=== PATIENT | male | born 1965 | race Caucasian/White ===

== ENCOUNTER 2018-02-15 18:06 | Inpatient (IN) ==
[2018-02-16] MEDS ORDERED: Insulin NovoLOG Aspart Correctional Sugar Inj SQ ONE (22:13)
[2018-02-16] MEDS ORDERED: Sodium Chlor 0.9% Inj 250 ML ONE (22:59)
[2018-02-17] MEDS ORDERED: Dextrose 50% in Water 50 ML Vial IV.PUSH PRN (00:01)
[2018-02-17] MEDS ORDERED: Bisacodyl 10 MG Supp RECTAL PRN (00:01)
[2018-02-17] MEDS ORDERED: Acetaminophen 325 MG Tablet PO PRN (00:01)
[2018-02-17] MEDS ORDERED: Dextrose 10% in Water Inj 500 ML IV.SIG SCH ×2 (00:01)
[2018-02-17] MEDS ORDERED: Chlorhexidine Gluconate 2% 1 Pack (2 Cloths) TOPICAL PRN (00:01)
[2018-02-17] MEDS ORDERED: Vancomycin Consult Pharmacy 1 EACH OTHER SCH (00:01)
[2018-02-17] MEDS: Vancomycin Inj 1,750 MG in Sodium Chlor 0.9% Inj 500 ML IV.SIG SCH ×2 (02:00→13:28)
[2018-02-17] MEDS: Piperacil/Tazo 4.5 GM Premix 4.5 GM/100 ML BAG IV.SIG SCH ×4 (03:47→21:14)
[2018-02-17] MEDS: Insulin NovoLOG Aspart Correctional Sugar Inj SQ SCH ×7 (03:49→21:34)
[2018-02-17] MEDS ORDERED: Chlorhexidine Gluconate 2% 1 Pack (2 Cloths) TOPICAL SCH (04:00)
[2018-02-17] MEDS ORDERED: [UNRECOGNIZED DRUG - REMARK] OTHER SCH (04:00)
--- NOTE | 2018-02-17 05:11 | XR ---
EXAM DATE: 02/17/2018 4:43 AM EDT AGE/SEX: 53 years / Male INDICATIONS: Short of breath. CLINICAL DATA: This is the patient's subsequent encounter. Patient reports that signs and symptoms h ave been present for 3 days and indicates a pain score of 5/10. MEDICAL/SURGICAL HISTORY: None. None. COMPARISON: [facility] [place] SINGLE AP, 02/15/2018. . FINDINGS: Patchy basilar airspace disease similar to February 15. No effusion. No pneumothorax. Heart size within n ormal limits. CONCLUSION: Electronically signed by: Nelson Vasquez MD 02/17/2018 5:10 AM EDT
[2018-02-17 06:20] LABS: Baso % (Auto) 0.4 % (0.0-2.0); Eos # (Auto) 0.2 th/mm3 (0.0-0.4); Eos % (Auto) 1.4 % (0.0-4.0); Hematocrit 35.3 % (39.0-51.0); Hemoglobin 11.9 gm/dL (13.0-17.0); Lymph # (Auto) 1.1 th/mm3 (1.0-4.8); Lymph % (Auto) 9.7 % (9.0-44.0); Mean Corpuscular HGB Conc 33.7 % (32.0-36.0); Mean Corpuscular Volume 94.9 fL (80.0-100.0); Mean Platelet Volume 9.6 fL (7.0-11.0); Mono # (Auto) 1.4 th/mm3 (0.0-0.9); Mono % (Auto) 12.8 % (0.0-8.0); Neut # (Auto) 8.4 th/mm3 (1.8-7.7); Neut % (Auto) 75.7 % (16.0-70.0); Platelet Count 237 th/mm3 (150-450); Red Blood Count 3.72 mil/mm3 (4.50-5.90); Red Cell Distribution Width 13.2 % (11.6-17.2); White Blood Count 11.1 th/mm3 (4.0-11.0)
[2018-02-17] MEDS: Morphine Inj 4 MG/ML Vial IV.PUSH PRN ×2 (06:30→21:24)
[2018-02-17 06:39] LABS: Alanine Aminotransferase 118 U/L (12-78); Albumin 2.3 g/dL (3.4-5.0); Alkaline Phosphatase 110 U/L (45-117); Anion Gap 12 meq/L (5-15); Aspartate Aminotransferase 57 U/L (15-37); Blood Urea Nitrogen 10 mg/dL (7-18); Calcium 7.6 mg/dL (8.5-10.1); Chloride 99 meq/L (98-107); Glomerular Filtration Rate 80 mL/min (>89); Glucose,Random 186 mg/dL (74-106); Potassium 3.1 meq/L (3.5-5.1); Sodium 136 meq/L (136-145); Total Protein 6.2 g/dL (6.4-8.2)
[2018-02-17] MEDS ORDERED: Insulin NovoLOG Aspart Correctional Sugar Inj SQ SCH (08:00)
[2018-02-17] MEDS: Senna/Docusate Sodium 8.6/50 MG Tablet PO SCH ×2 (08:23→21:13)
[2018-02-17] MEDS: Oseltamivir Phosphate 75 MG Capsule PO SCH ×2 (08:23→21:13)
--- NOTE | 2018-02-17 09:44 | P.PNCC ---
Subjective Subjective Remarks/Hospital Course: 02/16: 53-year-old male with past medical history diabetes mellitus, hypertension, hyperlipidemia, obesity who presented to [facility] emergency department due to febrile illness. He states he recently traveled to [place] for 5 days and on his flight home on Monday 02/12 he developed rigors and chills. He says he had passed a kidney stone prior to his trip and one during his trip. He was started on bactrim by his PCP due to concern for UTI and then followed up with Dr. Maynard who recommended CT abd/pelvis. His temp has been up to 103.2. He denies dysuria, flank pain, abdominal pain, nausea , vomiting, sore throat, cough, chest pain, sputum production, hemoptysis, headache, neckpain. He has anorexia. Denies known ill contacts but has undergone air travel. No camping or foreign travel. Initial CXR negative. CT abd /pelvis with IV contrast -gallbladder small and shrunken. No acute abnormality. WBC 15.1. He has DESTINI with creatinine of 1.53, lactic acid 2.4. Transaminases elevated. He was hypoglycemic with glucose of 53. He is admitted to hospitalist service and started on Zosyn, azithromycin, and vancomycin. Blood cultures are pending. Influenza screen is negative.. Respiratory status worsened and he is now on BiPAP 10/5 with FiO2 50%. CXR now with bilateral opacities. 02/17: Complains of right knee pain which started yesterday. Resting comfortably in bed on nasal cannula. Feels his breathing is improving. Not in any acute distress. Objective Vital Signs / I&O: Vital Signs 02/17/18 02:50 02/17/18 03:00 02/17/18 04:00 Temperature 99.4 F 99.4 F Pulse Rate 96 H 98 H Respiratory Rate 17 Blood Pressure 121/71 134/72 Pulse Oximetry 96 94 L 02/17/18 06:00 02/17/18 08:00 Temperature 99.4 F Pulse Rate 97 H 93 H Respiratory Rate 24 Blood Pressure 117/59 L Pulse Oximetry 95 Intake & Output 02/16/18 02/17/18 02/17/18 18:59 06:59 18:59 Intake Total 580 / 580 Output Total 750 / 750 Balance -170 / -170 Intake: IV 100 / 100 Zosyn 4.5 GM Premix 4.5 gm In 100 / 100 100 ml @ 200 mls/hr IV.SIG Q6H KALYN Rx#:[id number] Oral 480 / 480 Output: Urine 750 / 750 Other: Date of Last Bowel Movement 02/15/18 # Bowel Movements 0 Result Diagrams: 02/17/18 04:46 02/17/18 04:46 Imaging: CT abdomen pelvis: Unremarkable, small left pleural effusion Liver ultrasound: Fatty liver Lower extremity venous Dopplers: Negative for DVT. Left popliteal cyst Objective Remarks: GENERAL: Well-nourished obese male who appears comfortable on nasal cannula. sitting up in [facility] [place] bed. SKIN: Warm and dry. HEAD: Atraumatic. Normocephalic. EYES: Pupils equal and round, 2 mm reactive bilaterally.. No scleral icterus. No injection or drainage. ENT: BiPAP mask is in place. NECK: Trachea midline. No JVD. No meningismus. CARDIOVASCULAR: Regular rate and rhythm. No murmurs rubs or gallops. RESPIRATORY: Good air entry bilaterally. No wheeze. No rhonchi. GASTROINTESTINAL: Abdomen protuberant and obese, soft, nondistended. Completely nontender to palpation. Bowel sounds present. No costovertebral angle tenderness. MUSCULOSKELETAL: Tenderness on palpation over right knee. extremities without clubbing, cyanosis, or edema. No calf tenderness. No obvious deformities. NEUROLOGICAL: Awake and alert oriented x3.. No obvious cranial nerve deficits. Motor grossly within normal limits. Five out of 5 muscle strength in the arms and legs. Normal speech. Assessment and Plan - Assessment and Plan Plan: Assessment and Plan NEURO: Ultram/morphine as needed for pain Hold acetaminophen due to elevated LFTs. Obtain urine drug screen/acetaminophen/salicylate level RESP: Acute respiratory failure BiPAP prn, currently on nasal cannula Base of lungs appear normal follow-up chest x-ray following received fluid resuscitation shows bilateral opacities which may be related to pulmonary edema versus atypical/viral pneumonia. He has received Lasix 20 mg IV per hospitalist. We will follow clinical response and chest x-ray. Send viral respiratory panel. Cultures and abx as per below. CV: Hyperlipidemia Hypertension Incomplete right bundle branch block Lactic acidemia, resolved Hold lisinopril and valsartan and chlorthalidone due to acute kidney injury Hold statin for now due to elevated LFTs. Trend troponin. Follow-up 2D echo to evaluate for e/o myocarditis. GI: Transaminitis Anorexia CT abdomen and pelvis with IV contrast 02/15 demonstrated small and shrunken gallbladder. Liver is normal. Abdomen is nontender. Transaminase elevations ?secondary to viral process. INR normal. Send viral hepatitis panel, acetaminophen level, EBV, liver u/s. Trend LFT's. FEN/RENAL: Acute kidney injury Avoid nephrotoxins. Hold NSAIDs. Monitor intake and output. Monitor electrolytes. Monitor creatinine. Check CPK and urine eosinophils. No hydronephrosis was noted on CT ID: Severe sepsis Presentation appears most c/w viral respiratory illness. possible tickborne disease. Now with left knee pain which may possibly be source. Blood cultures have been sent. Influenza is negative. F/u viral respiratory panel, urine Legionella and pneumococcal antigens. U/a neg. Continue Zosyn, azithromycin, vancomycin. Will narrow based on culture data. Empiric tamiflu for now. Consult ID for further evaluation HEME: He is empirically started on Lovenox 130 subcu every 12 hours per hospitalist for possibility of venous thromboembolism given shortness of breath and air travel. Symptoms seem more likely explained by infectious etiology, if u/s negative then will consider VQ scan vs discontinuation of therapeutic lovenox depending on clinical course. ENDO: Hypoglycemia History of diabetes mellitus Unclear etiology of hypoglycemia though could be related to decreased clearance of glimepiride during acute kidney injury. He was also on Tradjenta and metformin 1000 mg p.o. twice daily. Oral hypoglycemics on hold. D10 30 mL/h. Glucose every hour. Check cortisol and TSH. Further workup for hypoglycemia if it persists. PROPH: SCD for DVT prophylaxis. On therapeutic Lovenox as per above. Famotidine for stress ulcer prophylaxis. ACCESS: PIV providing adequate access at this time. Full code
[2018-02-17] MEDS: Enoxaparin Inj 150 MG/ML Syringe SQ SCH ×2 (10:45→21:13)
[2018-02-17] MEDS: Famotidine PF Inj 20 MG/2 ML Vial IV.PUSH SCH ×2 (10:46→23:19)
--- NOTE | 2018-02-17 11:42 | P.CONID ---
History of Present Illness Service: Infectious disease Consult date: 02/17/18 Requesting Physician: Keshawn Huertas Reason for Consult: Evaluate patient with sepsis, unknown source Primary Care Provider: Tong Torrez MD History of Present Illness: Patient seen and examined. Records reviewed. Patient is a 53-year-old male, presented to the hospital for further evaluation of fever, chills, and shortness of breath. His problem started about 2-1/2 weeks ago when he started passing some brown colored urine. Patient has had problem with kidney stones and this looked like 1 of his episodes, and he usually passed the stone spontaneously. He has never had any urological procedure. He was advised to increase his fluid intake, but he was not improving, so he called his primary care physician who was considered with UTI and he was given a prescription for Bactrim. His symptoms improved, and patient went on his planned vacation to [place], and his urine cleared up. On the flight back to [place] which was on February 12, he started experiencing fever chills, body aches, and headaches. He was seen by his primary care physician on February 13, and was referred to the urologist who he saw on February 14. A CT of the abdomen was planned to be done, but his symptoms were not improving , and he started having some shortness of breath. He presented to the hospital for further evaluation and treatment. Patient denies any significant abdominal pain, nausea or vomiting. He has known chronic back pain and there has not been any worsening of that. His urinary symptoms have improved. He denies any congestion or any cough or any sore throat but does have the shortness of breath. Since admission his temperature has been up to 103.2. His initial chest x-ray was normal, and when he started having more problem with breathing, repeat chest x-ray was done and it is now showing bilateral infiltrates. CT of the abdomen and pelvis did not show any abnormality in the kidney but showed only a small collapsed gallbladder. His urinalysis was unremarkable. WBC was up to 15.1. Lactic acid was elevated at 2.4. Creatinine was 1.53. His transaminases were also elevated. At the time my exam patient clinically feels better as far as his body aches, and shortness of breath. He is on nasal O2. Cultures so far negative. Urine for Legionella and pneumococcal antigen were negative. Influenza testing is negative. Patient is on IV vancomycin, Zosyn, and Zithromax. Infectious disease consultation has been requested to evaluate the patient and assist with management. Review of Systems Constitutional: Reports body ache(s), Reports chills, Reports fatigue, Reports fever(s), Reports malaise, Reports night sweats, Reports weakness Eyes: Denies discharge, Denies itchy eyes Ears, Nose, Mouth, and Throat: Reports headache(s), Denies ear pain, Denies facial pain, Denies mouth lesions, Denies mouth pain, Denies nasal congestion, Denies nasal discharge, Denies pain with swallowing, Denies sinus pain Cardiovascular: Reports shortness of breath, Denies chest pain Respiratory: Denies cough, Denies pain on inspiration, Denies pain with cough Gastrointestinal: Denies abdominal pain, Denies difficulty swallowing, Denies heartburn, Denies nausea, Denies pain with swallowing, Denies vomiting Genitourinary: Reports blood in urine, Denies genital lesions Musculoskeletal: Reports back pain, Reports body aches, Denies joint pain, Denies joint swelling Skin/Breast: Denies rash Neurologic: Reports headache(s) Hematologic/Lymphatic: Denies easy bruising PMFSH - Medical History Medical History: Medical History (Last Updated 02/17/18 @ 11:25 by Rebekah Orlando MD) Diabetes Diverticulosis Hyperlipidemia Hypertension Kidney stones Obesity - Tobacco History Smoking Status: Never smoker - Alcohol History How Often Do You Have a Drink Containing Alcohol: Monthly or less - Substance Use History Substance History: No History of Abuse - Travel History History of Recent Travel: Yes ([place]) Medications and Allergies Active Medications: Active Medications Acetaminophen (Tylenol) 650 mg PO Q6H PRN PRN Reason: HEADACHE Hydrocodone Bitart/Acetaminophen (Holder 5/325) 1 tab PO Q4H PRN PRN Reason: PAIN SCALE 3 TO 5 Al Hydroxide/Mg Hydroxide (Milk Of Magnesia Liq) 30 ml PO Q12H PRN PRN Reason: MILD CONSTIPATION Aspirin (Aspirin Chew) 81 mg CHEW DAILY [facility] Last Admin: 02/17/18 08:23 Dose: 81 mg Atorvastatin Calcium (Lipitor) 40 mg PO HS [facility] Bisacodyl (Dulcolax Supp) 10 mg RECTAL DAILY PRN PRN Reason: SEVERE CONSTIPATION Dextrose (D50w Vial) 50 ml IV.PUSH UNSCH PRN PRN Reason: HYPOGYCEMIA-SEE COMMENTS Enoxaparin Sodium (Lovenox Inj) 130 mg SQ Q12H [facility] Last Admin: 02/17/18 10:45 Dose: 130 mg Famotidine (Pepcid Pf Inj) 20 mg IV.PUSH Q12H [facility] Last Admin: 02/17/18 10:46 Dose: 20 mg Glucagon (Glucagon Inj) 1 mg OTHER UNSCH PRN PRN Reason: HYPOGLYCEMIA-SEE COMMENTS Vancomycin HCl 1,750 mg/ (Sodium Chloride) 517.5 mls @ 250 mls/hr IV.SIG Q12H [facility] Last Admin: 02/17/18 02:00 Dose: 250 mls/hr Azithromycin 500 mg/ Sodium (Chloride) 250 mls @ 250 mls/hr IV.SIG Q24H [facility] Last Admin: 02/17/18 00:00 Dose: 250 mls/hr Piperacillin/Tazobactam/Dextrose (Zosyn 4.5 Gm Premix) 4.5 gm in 100 mls @ 200 mls/hr IV.SIG Q6H [facility] Last Admin: 02/17/18 10:45 Dose: 200 mls/hr Pharmacy Profile Note (Vancomycin Consult Pharmacy) mls @ 0 mls/hr OTHER UNSCH [facility] Insulin Aspart (Novolog Insulin Suppl Scale Inj) 1 unit SQ Q4H [facility]; Protocol Last Admin: 02/17/18 06:21 Dose: 1 unit Lactulose (Lactulose Liq) 30 ml PO DAILY PRN PRN Reason: SEVERE CONSTIPATION Metoclopramide HCl (Reglan Inj) 5 mg IV.PUSH Q6H PRN PRN Reason: NAUSEA OR VOMITING Miscellaneous Information ([facility] Ordered Lab Info) 0 each OTHER ONCE ONE Stop: 02/18/18 00:46 Morphine Sulfate (Morphine Inj) 2 mg IV.PUSH Q3H PRN PRN Reason: PAIN 6-10 Last Admin: 02/17/18 06:30 Dose: 2 mg Ondansetron HCl (Zofran Inj) 4 mg IV.PUSH Q6H PRN PRN Reason: NAUSEA OR VOMITING Oseltamivir Phosphate (Tamiflu) 75 mg PO BID [facility] Last Admin: 02/17/18 08:23 Dose: 75 mg Senna/Docusate Sodium (Sola-Colace) 1 tab PO BID [facility] Last Admin: 02/17/18 08:23 Dose: 1 tab Sennosides (Senokot) 17.2 mg PO Q12H PRN PRN Reason: MILD CONSTIPATION Sodium Chloride (Ns Flush) 2 ml IV.FLUSH UNSCH PRN PRN Reason: FLUSH AFTER USING IV ACCESS Sodium Chloride (Ns Flush) 2 ml IV.FLUSH BID [facility] Last Admin: 02/17/18 08:23 Dose: 2 ml Tramadol HCl (Ultram) 50 mg PO Q6H PRN PRN Reason: PAIN SCALE 1 TO 10 Allergies Allergy/AdvReac Type Severity Reaction Status Date / Time No Known Allergies AdvReac Unknown Uncoded 02/15/18 13:39 Home Medications Medication Instructions Recorded Confirmed Type Tradjenta 5 mg PO DAILY 02/16/18 02/16/18 History atorvastatin 40 mg PO HS 02/16/18 02/16/18 History chlorthalidone 25 mg PO DAILY 02/16/18 02/16/18 History glimepiride 2 mg PO DAILY 02/16/18 02/16/18 History ibuprofen 800 mg PO Q6HR PRN 02/16/18 02/16/18 History lisinopril 40 mg PO HS 02/16/18 02/16/18 History metformin 1,000 mg PO BID 02/16/18 02/16/18 History methocarbamol 750 mg PO TID 02/16/18 02/16/18 History tramadol 50 mg PO Q8HR PRN 02/16/18 02/16/18 History valsartan 160 mg PO BID 02/16/18 02/16/18 History Exam Vital signs: Vital Signs 02/17/18 02:50 02/17/18 03:00 02/17/18 04:00 Temperature 99.4 F 99.4 F Pulse Rate 96 H 98 H Respiratory Rate 17 Blood Pressure 121/71 134/72 Pulse Oximetry 96 94 L 02/17/18 06:00 02/17/18 08:00 02/17/18 09:50 Temperature 99.4 F Pulse Rate 97 H 93 H Respiratory Rate 24 Blood Pressure 117/59 L Pulse Oximetry 95 94 L Intake & Output 02/16/18 02/17/18 02/17/18 18:59 06:59 18:59 Intake Total 580 / 580 Output Total 750 / 750 Balance -170 / -170 Intake: IV 100 / 100 Zosyn 4.5 GM Premix 4.5 gm In 100 / 100 100 ml @ 200 mls/hr IV.SIG Q6H [facility] Rx#:[id number] Oral 480 / 480 Output: Urine 750 / 750 Other: Date of Last Bowel Movement 02/15/18 # Bowel Movements 0 Narrative: PHYSICAL EXAMINATION GENERAL: Patient is an obese, well-developed male, awake and alert, not in respiratory distress. He is on nasal O2. SKIN: Warm and dry. No generalized rash, no ecchymoses and no evidence of embolic lesions. HEAD: Atraumatic. Normocephalic. No temporal wasting, or tenderness. EYES: [place] conjunctiva. No petechia or hemorrhage. Pupils equal, round and reactive to light. Extraocular movements full and intact. No scleral icterus. No injection or drainage. EARS, NOSE AND THROAT: Nose without bleeding or purulent nasal discharge. No sinus tenderness. Mucous membranes pink and moist. No oral lesions noted. No exudate. No oral thrush. NECK: Trachea midline. Supple and not tender, no meningeal signs CARDIOVASCULAR: Regular rate and rhythm. No murmurs, rubs or gallops heard RESPIRATORY: Coarse breath sounds bilaterally. Breath sounds equal bilaterally. No rales, wheezing or rhonchi ABDOMEN: Soft, non-tender, nondistended. Bowel sounds present and normoactive. No guarding. No rebound. No organomegaly. EXTREMITIES: No clubbing, cyanosis, or edema. No joint effusion, has good ROM. No calf tenderness. Well perfused and warm. NEUROLOGICAL: Awake and alert. Cranial nerves grossly intact. Motor grossly within normal limits. PSYCHIATRIC: Normal affect, calm and cooperative. LINE: No evidence of infection Results - Labs CBC & Chem 7: 02/17/18 04:46 02/17/18 04:46 Labs: Laboratory Results - last 24 hr 02/15/18 02/15/18 02/15/18 13:57 14:00 14:00 WBC RBC Hgb Hct MCV MCH MCHC RDW Plt Count MPV Neut % (Auto) Lymph % (Auto) [place] % (Auto) Eos % (Auto) Baso % (Auto) Neut # (Auto) Lymph # (Auto) [place] # (Auto) Eos # (Auto) Baso # (Auto) CBC Comment WBC Differential Differential Comment PT INR APTT Fibrinogen Puncture Site Patient Temperature HCO3 Base Excess O2 Saturation ABG pH ABG pCO2 ABG pO2 ABG O2 Content ABG Carboxyhemoglobin ABG Methemoglobin Hemoglobin O2 Delivery Device Liter Flow Sodium 139 Potassium 2.7 L* Chloride 102 Carbon Dioxide 26.9 Anion Gap 10 BUN 26 H Creatinine 1.53 H Estimated GFR 48 L POC Glucose Random Glucose 53 L Lactic Acid 2.4 H Calcium 9.3 Magnesium Total Bilirubin 0.8 AST 71 H ALT 126 H Alkaline Phosphatase 114 Ammonia Total Creatine Kinase Troponin I B-Natriuretic Peptide Total Protein 7.8 Albumin 3.4 Lipase TSH 3rd Generation Random Cortisol Urine Color [place] Urine Turbidity CLEAR Urine pH 5.0 Ur Specific [place] 1.027 Urine Protein 30 H Urine Glucose (UA) NEG Urine Ketones NEG Urine Occult Blood NEG Urine Nitrite NEG Urine Bilirubin NEG Urine Urobilinogen 4.0 OR GREATER H Ur Leukocyte Esterase NEG Urine WBC 2 Hyaline Casts 1 Micro UA Comment CULT NOT INDICATED Urine Eosinophils Nasal Screen MRSA (PCR) Salicylates Urine Opiates Screen Acetaminophen Ur Barbiturates Screen Ur Amphetamines Screen U Benzodiazepines Scrn Urine Cocaine Screen U Cannabinoids Screen Hepatitis A IgM Ab Hep Bs Antigen Hep B Core IgM Ab Hep C IgG Ab 02/15/18 02/15/18 02/15/18 14:00 14:00 14:00 WBC 15.1 H RBC 4.49 L Hgb 14.1 Hct 41.7 MCV 93.0 MCH 31.4 MCHC 33.8 RDW 13.3 Plt Count 290 MPV 9.6 Neut % (Auto) 78.6 H Lymph % (Auto) 9.5 [place] % (Auto) 10.3 H Eos % (Auto) 1.1 Baso % (Auto) 0.5 Neut # (Auto) 11.9 H Lymph # (Auto) 1.4 [place] # (Auto) 1.6 H Eos # (Auto) 0.2 Baso # (Auto) 0.1 CBC Comment DIFF FINAL WBC Differential Differential Comment PT 11.0 INR 1.1 APTT 36.5 H Fibrinogen Puncture Site Patient Temperature HCO3 Base Excess O2 Saturation ABG pH ABG pCO2 ABG pO2 ABG O2 Content ABG Carboxyhemoglobin ABG Methemoglobin Hemoglobin O2 Delivery Device Liter Flow Sodium Potassium Chloride Carbon Dioxide Anion Gap BUN Creatinine Estimated GFR POC Glucose Random Glucose Lactic Acid Calcium Magnesium 2.2 Total Bilirubin AST ALT Alkaline Phosphatase Ammonia Total Creatine Kinase Troponin I B-Natriuretic Peptide Total Protein Albumin Lipase TSH 3rd Generation Random Cortisol Urine Color Urine Turbidity Urine pH Ur Specific [place] Urine Protein Urine Glucose (UA) Urine Ketones Urine Occult Blood Urine Nitrite Urine Bilirubin Urine Urobilinogen Ur Leukocyte Esterase Urine WBC Hyaline Casts Micro UA Comment Urine Eosinophils Nasal Screen MRSA (PCR) Salicylates Urine Opiates Screen Acetaminophen Ur Barbiturates Screen Ur Amphetamines Screen U Benzodiazepines Scrn Urine Cocaine Screen U Cannabinoids Screen Hepatitis A IgM Ab Hep Bs Antigen Hep B Core IgM Ab Hep C IgG Ab 02/15/18 02/15/18 02/15/18 16:34 21:20 21:43 WBC RBC Hgb Hct MCV MCH MCHC RDW Plt Count MPV Neut % (Auto) Lymph % (Auto) [place] % (Auto) Eos % (Auto) Baso % (Auto) Neut # (Auto) Lymph # (Auto) [place] # (Auto) Eos # (Auto) Baso # (Auto) CBC Comment WBC Differential Differential Comment PT INR APTT Fibrinogen Puncture Site LT RADIAL Patient Temperature 98.6 HCO3 23 Base Excess 0.0 O2 Saturation 89 L* ABG pH 7.53 H* ABG pCO2 27 L ABG pO2 56 L* ABG O2 Content 14.8 ABG Carboxyhemoglobin 1.2 ABG Methemoglobin 0.8 Hemoglobin 11.8 L O2 Delivery Device NASAL [place] Liter Flow 4 Sodium Potassium Chloride Carbon Dioxide Anion Gap BUN Creatinine Estimated GFR POC Glucose Random Glucose Lactic Acid 2.6 H 2.4 H Calcium Magnesium Total Bilirubin AST ALT Alkaline Phosphatase Ammonia Total Creatine Kinase Troponin I B-Natriuretic Peptide Total Protein Albumin Lipase TSH 3rd Generation Random Cortisol Urine Color Urine Turbidity Urine pH Ur Specific [place] Urine Protein Urine Glucose (UA) Urine Ketones Urine Occult Blood Urine Nitrite Urine Bilirubin Urine Urobilinogen Ur Leukocyte Esterase Urine WBC Hyaline Casts Micro UA Comment Urine Eosinophils Nasal Screen MRSA (PCR) Salicylates Urine Opiates Screen Acetaminophen Ur Barbiturates Screen Ur Amphetamines Screen U Benzodiazepines Scrn Urine Cocaine Screen U Cannabinoids Screen Hepatitis A IgM Ab Hep Bs Antigen Hep B Core IgM Ab Hep C IgG Ab 02/15/18 02/15/18 02/15/18 23:00 23:45 23:45 WBC RBC Hgb Hct MCV MCH MCHC RDW Plt Count MPV Neut % (Auto) Lymph % (Auto) [place] % (Auto) Eos % (Auto) Baso % (Auto) Neut # (Auto) Lymph # (Auto) [place] # (Auto) Eos # (Auto) Baso # (Auto) CBC Comment WBC Differential Differential Comment PT INR APTT Fibrinogen Puncture Site Patient Temperature HCO3 Base Excess O2 Saturation ABG pH ABG pCO2 ABG pO2 ABG O2 Content ABG Carboxyhemoglobin ABG Methemoglobin Hemoglobin O2 Delivery Device Liter Flow Sodium 138 Potassium 3.2 L Chloride 105 Carbon Dioxide 24.0 Anion Gap 9 BUN 14 D Creatinine 1.17 Estimated GFR 65 L POC Glucose Random Glucose 91 Lactic Acid Calcium 7.6 L D Magnesium Total Bilirubin 1.0 AST 98 H ALT 141 H Alkaline Phosphatase 120 H Ammonia Total Creatine Kinase Troponin I 0.29 H B-Natriuretic Peptide 204 H Total Protein 6.4 D Albumin 2.7 L D Lipase TSH 3rd Generation Random Cortisol Urine Color Urine Turbidity Urine pH Ur Specific [place] Urine Protein Urine Glucose (UA) Urine Ketones Urine Occult Blood Urine Nitrite Urine Bilirubin Urine Urobilinogen Ur Leukocyte Esterase Urine WBC Hyaline Casts Micro UA Comment Urine Eosinophils Nasal Screen MRSA (PCR) MRSA NOT DETECTED Salicylates Urine Opiates Screen Acetaminophen Ur Barbiturates Screen Ur Amphetamines Screen U Benzodiazepines Scrn Urine Cocaine Screen U Cannabinoids Screen Hepatitis A IgM Ab Hep Bs Antigen Hep B Core IgM Ab Hep C IgG Ab 02/15/18 02/15/18 02/16/18 23:45 23:45 04:23 WBC 11.9 H 15.2 H RBC 3.74 L 4.01 L Hgb 11.7 L D 12.8 L Hct 34.7 L 37.4 L MCV 92.8 93.4 MCH 31.4 31.9 MCHC 33.8 34.1 RDW 13.3 13.5 Plt Count 244 255 MPV 9.3 9.9 Neut % (Auto) 83.3 H 78.7 H Lymph % (Auto) 5.8 L 8.7 L [place] % (Auto) 9.9 H 11.6 H Eos % (Auto) 0.6 0.7 Baso % (Auto) 0.4 0.3 Neut # (Auto) 9.9 H 12.0 H Lymph # (Auto) 0.7 L 1.3 [place] # (Auto) 1.2 H 1.8 H Eos # (Auto) 0.1 0.1 Baso # (Auto) 0.0 0.1 CBC Comment DIFF FINAL DIFF FINAL WBC Differential Differential Comment PT INR APTT Fibrinogen Puncture Site Patient Temperature HCO3 Base Excess O2 Saturation ABG pH ABG pCO2 ABG pO2 ABG O2 Content ABG Carboxyhemoglobin ABG Methemoglobin Hemoglobin O2 Delivery Device Liter Flow Sodium Potassium Chloride Carbon Dioxide Anion Gap BUN Creatinine Estimated GFR POC Glucose Random Glucose Lactic Acid 1.3 Calcium Magnesium Total Bilirubin AST ALT Alkaline Phosphatase Ammonia Total Creatine Kinase Troponin I B-Natriuretic Peptide Total Protein Albumin Lipase TSH 3rd Generation Random Cortisol Urine Color Urine Turbidity Urine pH Ur Specific [place] Urine Protein Urine Glucose (UA) Urine Ketones Urine Occult Blood Urine Nitrite Urine Bilirubin Urine Urobilinogen Ur Leukocyte Esterase Urine WBC Hyaline Casts Micro UA Comment Urine Eosinophils Nasal Screen MRSA (PCR) Salicylates Urine Opiates Screen Acetaminophen Ur Barbiturates Screen Ur Amphetamines Screen U Benzodiazepines Scrn Urine Cocaine Screen U Cannabinoids Screen Hepatitis A IgM Ab Hep Bs Antigen Hep B Core IgM Ab Hep C IgG Ab 02/16/18 02/16/18 02/16/18 04:23 04:23 04:23 WBC RBC Hgb Hct MCV MCH MCHC RDW Plt Count MPV Neut % (Auto) Lymph % (Auto) [place] % (Auto) Eos % (Auto) Baso % (Auto) Neut # (Auto) Lymph # (Auto) [place] # (Auto) Eos # (Auto) Baso # (Auto) CBC Comment WBC Differential Differential Comment PT INR APTT Fibrinogen Puncture Site Patient Temperature HCO3 Base Excess O2 Saturation ABG pH ABG pCO2 ABG pO2 ABG O2 Content ABG Carboxyhemoglobin ABG Methemoglobin Hemoglobin O2 Delivery Device Liter Flow Sodium 138 Potassium 3.3 L Chloride 104 Carbon Dioxide 24.4 Anion Gap 10 BUN 12 Creatinine 1.20 Estimated GFR 63 L POC Glucose Random Glucose 48 L* Lactic Acid 1.1 Calcium 7.9 L Magnesium Total Bilirubin 1.4 H AST 100 H ALT 153 H Alkaline Phosphatase 134 H Ammonia Total Creatine Kinase 190 Troponin I 0.28 H B-Natriuretic Peptide Total Protein 7.0 D Albumin 3.0 L Lipase 126 TSH 3rd Generation Random Cortisol Urine Color Urine Turbidity Urine pH Ur Specific [place] Urine Protein Urine Glucose (UA) Urine Ketones Urine Occult Blood Urine Nitrite Urine Bilirubin Urine Urobilinogen Ur Leukocyte Esterase Urine WBC Hyaline Casts Micro UA Comment Urine Eosinophils Nasal Screen MRSA (PCR) Salicylates Urine Opiates Screen Acetaminophen LESS THAN 2.0 L Ur Barbiturates Screen Ur Amphetamines Screen U Benzodiazepines Scrn Urine Cocaine Screen U Cannabinoids Screen Hepatitis A IgM Ab NONREACTIVE Hep Bs Antigen NONREACTIVE Hep B Core IgM Ab NONREACTIVE Hep C IgG Ab NONREACTIVE 02/16/18 02/16/18 02/16/18 04:23 04:23 04:23 WBC RBC Hgb Hct MCV MCH MCHC RDW Plt Count MPV Neut % (Auto) Lymph % (Auto) [place] % (Auto) Eos % (Auto) Baso % (Auto) Neut # (Auto) Lymph # (Auto) [place] # (Auto) Eos # (Auto) Baso # (Auto) CBC Comment WBC Differential Differential Comment PT 12.0 H INR 1.2 APTT 37.2 H Fibrinogen Puncture Site Patient Temperature HCO3 Base Excess O2 Saturation ABG pH ABG pCO2 ABG pO2 ABG O2 Content ABG Carboxyhemoglobin ABG Methemoglobin Hemoglobin O2 Delivery Device Liter Flow Sodium Potassium Chloride Carbon Dioxide Anion Gap BUN Creatinine Estimated GFR POC Glucose Random Glucose Lactic Acid Calcium Magnesium Total Bilirubin AST ALT Alkaline Phosphatase Ammonia Total Creatine Kinase Troponin I B-Natriuretic Peptide Total Protein Albumin Lipase TSH 3rd Generation 0.958 Random Cortisol Urine Color Urine Turbidity Urine pH Ur Specific [place] Urine Protein Urine Glucose (UA) Urine Ketones Urine Occult Blood Urine Nitrite Urine Bilirubin Urine Urobilinogen Ur Leukocyte Esterase Urine WBC Hyaline Casts Micro UA Comment Urine Eosinophils Nasal Screen MRSA (PCR) Salicylates LESS THAN 1.7 L Urine Opiates Screen Acetaminophen Ur Barbiturates Screen Ur Amphetamines Screen U Benzodiazepines Scrn Urine Cocaine Screen U Cannabinoids Screen Hepatitis A IgM Ab Hep Bs Antigen Hep B Core IgM Ab Hep C IgG Ab 02/16/18 02/16/18 02/16/18 04:23 04:30 04:30 WBC RBC Hgb Hct MCV MCH MCHC RDW Plt Count MPV Neut % (Auto) Lymph % (Auto) [place] % (Auto) Eos % (Auto) Baso % (Auto) Neut # (Auto) Lymph # (Auto) [place] # (Auto) Eos # (Auto) Baso # (Auto) CBC Comment WBC Differential Differential Comment PT INR APTT Fibrinogen Puncture Site Patient Temperature HCO3 Base Excess O2 Saturation ABG pH ABG pCO2 ABG pO2 ABG O2 Content ABG Carboxyhemoglobin ABG Methemoglobin Hemoglobin O2 Delivery Device Liter Flow Sodium Potassium Chloride Carbon Dioxide Anion Gap BUN Creatinine Estimated GFR POC Glucose Random Glucose Lactic Acid Calcium Magnesium Total Bilirubin AST ALT Alkaline Phosphatase Ammonia Total Creatine Kinase Troponin I B-Natriuretic Peptide Total Protein Albumin Lipase TSH 3rd Generation Random Cortisol 43.3 Urine Color Urine Turbidity Urine pH Ur Specific [place] Urine Protein Urine Glucose (UA) Urine Ketones Urine Occult Blood Urine Nitrite Urine Bilirubin Urine Urobilinogen Ur Leukocyte Esterase Urine WBC Hyaline Casts Micro UA Comment Urine Eosinophils NONE SEEN Nasal Screen MRSA (PCR) Salicylates Urine Opiates Screen NEG Acetaminophen Ur Barbiturates Screen NEG Ur Amphetamines Screen NEG U Benzodiazepines Scrn NEG Urine Cocaine Screen NEG U Cannabinoids Screen NEG Hepatitis A IgM Ab Hep Bs Antigen Hep B Core IgM Ab Hep C IgG Ab 02/16/18 02/16/18 02/16/18 11:40 13:51 21:22 WBC RBC Hgb Hct MCV MCH MCHC RDW Plt Count MPV Neut % (Auto) Lymph % (Auto) [place] % (Auto) Eos % (Auto) Baso % (Auto) Neut # (Auto) Lymph # (Auto) [place] # (Auto) Eos # (Auto) Baso # (Auto) CBC Comment WBC Differential Differential Comment PT INR APTT Fibrinogen 708 H Puncture Site Patient Temperature HCO3 Base Excess O2 Saturation ABG pH ABG pCO2 ABG pO2 ABG O2 Content ABG Carboxyhemoglobin ABG Methemoglobin Hemoglobin O2 Delivery Device Liter Flow Sodium Potassium Chloride Carbon Dioxide Anion Gap BUN Creatinine Estimated GFR POC Glucose Random Glucose Lactic Acid Calcium Magnesium Total Bilirubin AST ALT Alkaline Phosphatase Ammonia 39 H Total Creatine Kinase Troponin I 0.23 H B-Natriuretic Peptide Total Protein Albumin Lipase TSH 3rd Generation Random Cortisol Urine Color Urine Turbidity Urine pH Ur Specific [place] Urine Protein Urine Glucose (UA) Urine Ketones Urine Occult Blood Urine Nitrite Urine Bilirubin Urine Urobilinogen Ur Leukocyte Esterase Urine WBC Hyaline Casts Micro UA Comment Urine Eosinophils Nasal Screen MRSA (PCR) Salicylates Urine Opiates Screen Acetaminophen Ur Barbiturates Screen Ur Amphetamines Screen U Benzodiazepines Scrn Urine Cocaine Screen U Cannabinoids Screen Hepatitis A IgM Ab Hep Bs Antigen Hep B Core IgM Ab Hep C IgG Ab 02/17/18 02/17/18 02/17/18 04:46 04:46 06:19 WBC 11.1 H RBC 3.72 L Hgb 11.9 L Hct 35.3 L MCV 94.9 MCH 32.0 MCHC 33.7 RDW 13.2 Plt Count 237 MPV 9.6 Neut % (Auto) 75.7 H Lymph % (Auto) 9.7 [place] % (Auto) 12.8 H Eos % (Auto) 1.4 Baso % (Auto) 0.4 Neut # (Auto) 8.4 H Lymph # (Auto) 1.1 [place] # (Auto) 1.4 H Eos # (Auto) 0.2 Baso # (Auto) 0.0 CBC Comment WBC Differential . Differential Comment Auto diff final PT INR APTT Fibrinogen Puncture Site Patient Temperature HCO3 Base Excess O2 Saturation ABG pH ABG pCO2 ABG pO2 ABG O2 Content ABG Carboxyhemoglobin ABG Methemoglobin Hemoglobin O2 Delivery Device Liter Flow Sodium 136 Potassium 3.1 L Chloride 99 Carbon Dioxide 25.0 Anion Gap 12 BUN 10 Creatinine 0.98 Estimated GFR 80 L POC Glucose 202 H Random Glucose 186 H Lactic Acid Calcium 7.6 L Magnesium Total Bilirubin 1.4 H AST 57 H ALT 118 H Alkaline Phosphatase 110 Ammonia Total Creatine Kinase Troponin I B-Natriuretic Peptide Total Protein 6.2 L Albumin 2.3 L Lipase TSH 3rd Generation Random Cortisol Urine Color Urine Turbidity Urine pH Ur Specific [place] Urine Protein Urine Glucose (UA) Urine Ketones Urine Occult Blood Urine Nitrite Urine Bilirubin Urine Urobilinogen Ur Leukocyte Esterase Urine WBC Hyaline Casts Micro UA Comment Urine Eosinophils Nasal Screen MRSA (PCR) Salicylates Urine Opiates Screen Acetaminophen Ur Barbiturates Screen Ur Amphetamines Screen U Benzodiazepines Scrn Urine Cocaine Screen U Cannabinoids Screen Hepatitis A IgM Ab Hep Bs Antigen Hep B Core IgM Ab Hep C IgG Ab 02/17/18 10:47 WBC RBC Hgb Hct MCV MCH MCHC RDW Plt Count MPV Neut % (Auto) Lymph % (Auto) [place] % (Auto) Eos % (Auto) Baso % (Auto) Neut # (Auto) Lymph # (Auto) [place] # (Auto) Eos # (Auto) Baso # (Auto) CBC Comment WBC Differential Differential Comment PT INR APTT Fibrinogen Puncture Site Patient Temperature HCO3 Base Excess O2 Saturation ABG pH ABG pCO2 ABG pO2 ABG O2 Content ABG Carboxyhemoglobin ABG Methemoglobin Hemoglobin O2 Delivery Device Liter Flow Sodium Potassium Chloride Carbon Dioxide Anion Gap BUN Creatinine Estimated GFR POC Glucose 223 H Random Glucose Lactic Acid Calcium Magnesium Total Bilirubin AST ALT Alkaline Phosphatase Ammonia Total Creatine Kinase Troponin I B-Natriuretic Peptide Total Protein Albumin Lipase TSH 3rd Generation Random Cortisol Urine Color Urine Turbidity Urine pH Ur Specific [place] Urine Protein Urine Glucose (UA) Urine Ketones Urine Occult Blood Urine Nitrite Urine Bilirubin Urine Urobilinogen Ur Leukocyte Esterase Urine WBC Hyaline Casts Micro UA Comment Urine Eosinophils Nasal Screen MRSA (PCR) Salicylates Urine Opiates Screen Acetaminophen Ur Barbiturates Screen Ur Amphetamines Screen U Benzodiazepines Scrn Urine Cocaine Screen U Cannabinoids Screen Hepatitis A IgM Ab Hep Bs Antigen Hep B Core IgM Ab Hep C IgG Ab - Imaging Impressions Abdomen/Pelvis CT 02/15/18 1512 Signed Impressions: CONCLUSION: I do not see a source of the patient's fever. There are no inflammatory changes evident. Chest X-Ray 02/15/18 1505 Signed Impressions: CONCLUSION: Elevation of the right hemidiaphragm, otherwise negative for acute process. . Assessment and Plan - Plan IMPRESSION Sepsis on presentation, which initially he had complaints, but current UA unremarkable, and CT A/P ok - has bilateral infiltrates, ?ARDS, clinically did not have any pneumonia symptoms - ?fever from Bactrim, also with elevated transaminitis - clinically no findings to suggest biliary tract source Known kidney stones Bilateral infiltrates - ?ARDS - no PNA symptoms DM Obesity RECOMMENDATION Follow cultures and adjust antibiotics I would repeat another UA Check sed rate, CRP Continue current empiric antibiotics, he is on Zosyn, vancomycin and Zithromax If cultures come back negative, will start to de-escalate Monitor temps Monitor progress I will determine course of antibiotic once workup is completed I will follow along with you Thank you for this consultation Explained plan to the patient and the
[2018-02-17 12:22] LABS: Anion Gap 11 meq/L (5-15); Carbon Dioxide 26.5 meq/L (21.0-32.0); Chloride 99 meq/L (98-107); Potassium 3.2 meq/L (3.5-5.1); Sodium 136 meq/L (136-145)
[2018-02-17 12:23] LABS: Alanine Aminotransferase 120 U/L (12-78); Albumin 2.3 g/dL (3.4-5.0); Alkaline Phosphatase 115 U/L (45-117); Aspartate Aminotransferase 53 U/L (15-37); Blood Urea Nitrogen 11 mg/dL (7-18); Calcium 7.8 mg/dL (8.5-10.1); Glomerular Filtration Rate 83 mL/min (>89); Glucose,Random 218 mg/dL (74-106); Total Protein 6.4 g/dL (6.4-8.2)
--- NOTE | 2018-02-17 13:39 | XR ---
EXAM DATE: 02/17/2018 1:33 PM EDT AGE/SEX: 53 years / Male INDICATIONS: Right lateral knee pain since Sunday. No known injuries. CLINICAL DATA: This is the patient's initial encounter. Patient reports that signs and symptoms have been present for 2 days and indicates a pain score of 6/10. MEDICAL/SURGICAL HISTORY: None. None. COMPARISON: No prior exams available for comparison. FINDINGS: There is chondrocalcinosis indicating pyrophosphate arthropathy and moderate associated arthritic chang nges present in tricompartmental distribution. Small suprapatellar effusion. No evidence of fracture or destructive change. CONCLUSION: Moderate pyrophosphate arthropathy. Electronically signed by: Luis Carlos Gonzalez MD 02/17/2018 1:38 PM EDT
[2018-02-17 20:32] LABS: Bilirubin,Urine Negative (Negative); Clarity,Urine Clear (Clear); Color,Urine Yellow (Yellw/Straw); Glucose,Urine (UA) 500 or Greater mg/dL (Negative); Leukocyte Esterase,Urine Negative (Negative); Nitrite,Urine Negative (Negative); Specific Gravity,Urine 1.014 (1.002-1.035); Urobilinogen,Urine 4 or Greater mg/dL (Less than 2)
[2018-02-17] MEDS: Azithromycin Inj 500 MG in Sodium Chlor 0.9% Inj 250 ML IV.SIG SCH ×3 (23:20)
[2018-02-18] MEDS ORDERED: Pharmacy Ordered Lab Info OTHER ONE (00:45)
[2018-02-18] MEDS: Vancomycin Inj 1,750 MG in Sodium Chlor 0.9% Inj 500 ML IV.SIG SCH (01:33)
[2018-02-18] MEDS: Insulin NovoLOG Aspart Correctional Sugar Inj SQ SCH ×6 (01:45→21:48)
--- NOTE | 2018-02-18 03:27 | XR ---
EXAM DATE: 02/18/2018 3:23 AM EDT AGE/SEX: 53 years / Male INDICATIONS: Short of breath. CLINICAL DATA: This is the patient's subsequent encounter. Patient reports that signs and symptoms h ave been present for 4 - 6 days and indicates a pain score of 0/10. MEDICAL/SURGICAL HISTORY: Non-responsive. Non-responsive. COMPARISON: [facility], CHEST 1V SINGLE AP, 02/17/2018. . FINDINGS: Slight improvement in patchy bilateral airspace opacities when compared to yesterday's exam. The hear t is enlarged, stable. Mild elevation right hemidiaphragm. CONCLUSION: Slight improvement in bilateral patchy infiltrates. Electronically signed by: Gene Negro MD 02/18/2018 3:26 AM EDT
[2018-02-18] MEDS: Piperacil/Tazo 4.5 GM Premix 4.5 GM/100 ML BAG IV.SIG SCH ×4 (03:56→21:16)
--- NOTE | 2018-02-18 07:54 | P.CONOP ---
[facility] Orthoped[facility] Consult [facility] - [facility] Consult date: 02/18/18 Consult reason: joint pain Chief complaint: Hypokalemia;Sepsis Unkwn Source Narrative: Patient is a 53-year-old gentleman who presented to the emergency department with concern for sepsis. While in the emergency department, he did complain of right knee pain and swelling. He states this has been present for several days and had been worsening up until yesterday. He states over the last 24 hours, his knee pain has improved and he is now able to move it more easily. He states he has previously had issues like this with intermittent knee swelling on his right knee which slowly improves on its own. He denies any erythema. He denies any instability. He denies any wounds or penetrating trauma to the right knee Review of Systems Denies current fevers, chills, nausea, vomiting. Denies chest, abdominal or throat pain. Denies blurry vision. Denies difficulty with urination currently. Denies numbness or tingling. Denies weakness or anxiety.denies any rash Reports right knee pain and swelling. [facility] - Medical History Medical History: Medical History (Last Updated 02/17/18 @ 11:25 by Rebekah Orlando MD) Diabetes Diverticulosis Hyperlipidemia Hypertension Kidney stones Obesity - Surgical History Surgical History: Surgical History (Last Updated 02/17/18 @ 11:25 by Rebekah Orlando MD) S/P partial colectomy - Tobacco History Smoking Status: Never smoker - Alcohol History How Often Do You Have a Drink Containing Alcohol: Monthly or less - Substance Use History Substance History: No History of Abuse - Travel History History of Recent Travel: Yes ([place]) Medications and Allergies Active Medications: Active Medications Acetaminophen (Tylenol) 650 mg PO Q6H PRN PRN Reason: HEADACHE Hydrocodone Bitart/Acetaminophen ([place] 5/325) 1 tab PO Q4H PRN PRN Reason: PAIN SCALE 3 TO 5 Al Hydroxide/Mg Hydroxide (Milk Of Magnesia Liq) 30 ml PO Q12H PRN PRN Reason: MILD CONSTIPATION Aspirin (Aspirin Chew) 81 mg CHEW DAILY [facility] Last Admin: 02/17/18 08:23 Dose: 81 mg Atorvastatin Calcium (Lipitor) 40 mg PO HS [facility] Bisacodyl (Dulcolax Supp) 10 mg RECTAL DAILY PRN PRN Reason: SEVERE CONSTIPATION Dextrose (D50w Vial) 50 ml IV.PUSH UNSCH PRN PRN Reason: HYPOGYCEMIA-SEE COMMENTS Enoxaparin Sodium (Lovenox Inj) 130 mg SQ Q12H [facility] Last Admin: 02/17/18 21:13 Dose: 130 mg Famotidine (Pepcid Pf Inj) 20 mg IV.PUSH Q12H [facility] Last Admin: 02/17/18 23:19 Dose: 20 mg Glucagon (Glucagon Inj) 1 mg OTHER UNSCH PRN PRN Reason: HYPOGLYCEMIA-SEE COMMENTS Vancomycin HCl 1,750 mg/ (Sodium Chloride) 517.5 mls @ 250 mls/hr IV.SIG Q12H [facility] Last Infusion: 02/18/18 03:40 Dose: Infused Azithromycin 500 mg/ Sodium (Chloride) 250 mls @ 250 mls/hr IV.SIG Q24H [facility] Last Infusion: 02/18/18 00:20 Dose: Infused Piperacillin/Tazobactam/Dextrose (Zosyn 4.5 Gm Premix) 4.5 gm in 100 mls @ 200 mls/hr IV.SIG Q6H [facility] Last Infusion: 02/18/18 04:30 Dose: Infused Pharmacy Profile Note (Vancomycin Consult Pharmacy) mls @ 0 mls/hr OTHER UNSCH [facility] Insulin Aspart (Novolog Insulin Suppl Scale Inj) 0 unit SQ Q4H [facility]; Protocol Last Admin: 02/18/18 06:16 Dose: Not Given Lactulose (Lactulose Liq) 30 ml PO DAILY PRN PRN Reason: SEVERE CONSTIPATION Metoclopramide HCl (Reglan Inj) 5 mg IV.PUSH Q6H PRN PRN Reason: NAUSEA OR VOMITING Morphine Sulfate (Morphine Inj) 2 mg IV.PUSH Q3H PRN PRN Reason: PAIN 6-10 Last Admin: 02/17/18 21:24 Dose: 2 mg Ondansetron HCl (Zofran Inj) 4 mg IV.PUSH Q6H PRN PRN Reason: NAUSEA OR VOMITING Oseltamivir Phosphate (Tamiflu) 75 mg PO BID [facility] Last Admin: 02/17/18 21:13 Dose: 75 mg Senna/Docusate Sodium (Sola-Colace) 1 tab PO BID [facility] Last Admin: 02/17/18 21:13 Dose: Not Given Sennosides (Senokot) 17.2 mg PO Q12H PRN PRN Reason: MILD CONSTIPATION Sodium Chloride (Ns Flush) 2 ml IV.FLUSH UNSCH PRN PRN Reason: FLUSH AFTER USING IV ACCESS Sodium Chloride (Ns Flush) 2 ml IV.FLUSH BID [facility] Last Admin: 02/17/18 21:13 Dose: 2 ml Tramadol HCl (Ultram) 50 mg PO Q6H PRN PRN Reason: PAIN SCALE 1 TO 10 Allergies Allergy/AdvReac Type Severity Reaction Status Date / Time No Known Allergies AdvReac Unknown Uncoded 02/15/18 13:39 Home Medications Medication Instructions Recorded Confirmed Type Tradjenta 5 mg PO DAILY 02/16/18 02/16/18 History atorvastatin 40 mg PO HS 02/16/18 02/16/18 History chlorthalidone 25 mg PO DAILY 02/16/18 02/16/18 History glimepiride 2 mg PO DAILY 02/16/18 02/16/18 History ibuprofen 800 mg PO Q6HR PRN 02/16/18 02/16/18 History lisinopril 40 mg PO HS 02/16/18 02/16/18 History metformin 1,000 mg PO BID 02/16/18 02/16/18 History methocarbamol 750 mg PO TID 02/16/18 02/16/18 History tramadol 50 mg PO Q8HR PRN 02/16/18 02/16/18 History valsartan 160 mg PO BID 02/16/18 02/16/18 History Exam Vital signs: Vital Signs 02/17/18 08:00 02/17/18 08:01 02/17/18 09:00 Temperature 99.4 F Pulse Rate 93 H 93 H 99 H Respiratory Rate 24 Blood Pressure 117/59 L 117/59 L 108/55 L Pulse Oximetry 93 L 94 L 95 02/17/18 09:50 02/17/18 10:00 02/17/18 10:01 Temperature Pulse Rate 98 H 97 H Respiratory Rate Blood Pressure 114/67 Pulse Oximetry 94 L 93 L 94 L 02/17/18 11:00 02/17/18 12:00 02/17/18 12:09 Temperature 99.4 F Pulse Rate 96 H 119 H 97 H Respiratory Rate Blood Pressure 121/68 131/63 Pulse Oximetry 96 92 L 02/17/18 13:00 02/17/18 13:01 02/17/18 14:00 Temperature Pulse Rate 94 H 95 H 98 H Respiratory Rate Blood Pressure 118/64 Pulse Oximetry 95 96 96 02/17/18 14:01 02/17/18 15:00 02/17/18 15:01 Temperature Pulse Rate 97 H 98 H 100 H Respiratory Rate Blood Pressure 135/63 134/63 Pulse Oximetry 96 92 L 93 L 02/17/18 16:00 02/17/18 16:01 02/17/18 17:00 Temperature 99.4 F Pulse Rate 96 H 99 H 92 H Respiratory Rate Blood Pressure 122/70 Pulse Oximetry 94 L 96 95 02/17/18 17:01 02/17/18 18:00 02/17/18 18:01 Temperature Pulse Rate 95 H 95 H 94 H Respiratory Rate Blood Pressure 128/66 135/75 Pulse Oximetry 96 95 96 02/17/18 19:00 02/17/18 19:01 02/17/18 20:00 Temperature 100.3 F H Pulse Rate 96 H 95 H 98 H Respiratory Rate Blood Pressure 139/69 139/69 Pulse Oximetry 96 95 97 02/17/18 21:26 02/17/18 22:07 02/17/18 22:41 Temperature Pulse Rate 99 H Respiratory Rate 17 Blood Pressure Pulse Oximetry 95 02/18/18 00:00 02/18/18 02:00 02/18/18 04:00 Temperature 99.4 F 98.8 F Pulse Rate 114 H 108 H 99 H Respiratory Rate 16 16 Blood Pressure 129/77 115/64 Pulse Oximetry 99 96 02/18/18 06:00 Temperature Pulse Rate 108 H Respiratory Rate Blood Pressure Pulse Oximetry Intake & Output 02/17/18 02/18/18 02/18/18 18:59 06:59 18:59 Intake Total 2195.0 / 2195.0 1447.5 / 1447.5 Output Total 1300 / 1300 850 / 850 Balance 895.0 / 895.0 597.5 / 597.5 Intake: IV 1235.0 / 1235.0 967.5 / 967.5 Azithromycin Inj 500 MG In NS 250 / 250 Inj 250 ML @ 250 mls/hr IV.SIG Q24H [facility] Rx#:[id number] Zosyn 4.5 GM Premix 4.5 gm In 200 / 200 200 / 200 100 ml @ 200 mls/hr IV.SIG Q6H [facility] Rx#:[id number] Vancomycin Inj 1,750 MG In NS 1035.0 / 1035.0 517.5 / 517.5 Inj 500 ML @ 250 mls/hr IV.SIG Q12H [facility] Rx#:[id number] Oral 960 / 960 480 / 480 Output: Urine 1300 / 1300 850 / 850 Other: Date of Last Bowel Movement 02/17/18 02/17/18 # Bowel Movements 1 1 Narrative: Awake, alert, in no acute distress Normocephalic Pupils equal Notes JVD Moist mucous membranes Soft nontender abdomen Unlabored respirations Regular rate Right lower extremity: Mild effusion at the knee without erythema. Very mild warmth about the knee. Patient instructed active range of motion from 0 to greater than 120 with only mild discomfort. Mild tenderness over medial and lateral joint lines. Patient has full passive range of motion of hip and ankle without pain. Neurovascularly intact distally. Sensation intact. Brisk cap refill. Bilateral upper extremities and left lower extremity: No significant tenderness palpation, deformities or visible signs of infection. Fulll active range of motion strength throughout. Sensation intact. Brisk cap refill. No rash Normal affect Results - Labs Result Diagrams: 02/17/18 04:46 02/17/18 11:01 Labs: Laboratory Results - last 24 hr 02/17/18 02/17/18 02/17/18 10:47 11:01 11:01 ESR Sodium 136 Potassium 3.2 L Chloride 99 Carbon Dioxide 26.5 Anion Gap 11 BUN 11 Creatinine 0.95 Estimated GFR 83 L POC Glucose 223 H Random Glucose 218 H Calcium 7.8 L Total Bilirubin 1.3 H AST 53 H ALT 120 H Alkaline Phosphatase 115 C-Reactive Protein 18.00 H Total Protein 6.4 Albumin 2.3 L Urine Color Urine Clarity Urine pH Ur Specific [place] Urine Protein Urine Glucose (UA) Urine Ketones Urine Occult Blood Urine Nitrate Urine Bilirubin Urine Urobilinogen Ur Leukocyte Esterase Urine WBC Vancomycin Trough 02/17/18 02/17/18 02/17/18 13:33 14:33 15:36 ESR Greater than 140 H Sodium Potassium Chloride Carbon Dioxide Anion Gap BUN Creatinine Estimated GFR POC Glucose 243 H Random Glucose Calcium Total Bilirubin AST ALT Alkaline Phosphatase C-Reactive Protein Total Protein Albumin Urine Color Yellow Urine Clarity Clear Urine pH 6.0 Ur Specific [place] 1.014 Urine Protein Negative Urine Glucose (UA) 500 or greater Urine Ketones Negative Urine Occult Blood Negative Urine Nitrate Negative Urine Bilirubin Negative Urine Urobilinogen 4 or greater Ur Leukocyte Esterase Negative Urine WBC 1 Vancomycin Trough 02/17/18 02/17/18 02/18/18 18:36 20:57 00:45 ESR Sodium Potassium Chloride Carbon Dioxide Anion Gap BUN Creatinine Estimated GFR POC Glucose 176 H 213 H Random Glucose Calcium Total Bilirubin AST ALT Alkaline Phosphatase C-Reactive Protein Total Protein Albumin Urine Color Urine Clarity Urine pH Ur Specific [place] Urine Protein Urine Glucose (UA) Urine Ketones Urine Occult Blood Urine Nitrate Urine Bilirubin Urine Urobilinogen Ur Leukocyte Esterase Urine WBC Vancomycin Trough 7.3 02/18/18 01:35 ESR Sodium Potassium Chloride Carbon Dioxide Anion Gap BUN Creatinine Estimated GFR POC Glucose 191 H Random Glucose Calcium Total Bilirubin AST ALT Alkaline Phosphatase C-Reactive Protein Total Protein Albumin Urine Color Urine Clarity Urine pH Ur Specific [place] Urine Protein Urine Glucose (UA) Urine Ketones Urine Occult Blood Urine Nitrate Urine Bilirubin Urine Urobilinogen Ur Leukocyte Esterase Urine WBC Vancomycin Trough - Diagnostic results Imaging: Impressions Knee X-Ray 02/17/18 00:00 CONCLUSION: Moderate pyrophosphate arthropathy. Chest X-Ray 02/18/18 05:00 CONCLUSION: Slight improvement in bilateral patchy infiltrates. Assessment and Plan - Assessment and Plan 53-year-old gentleman who presents with bacteremia and concern for right knee pain and swelling Options of management and diagnoses were discussed with the patient. 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 I discussed with the patient the option of continued observation with IV antibiotics versus right knee aspiration. I discussed the concern of possible infection and that with septic arthritis, there can be chondrolysis which can lead to early onset arthritis. I offered the patient a right knee aspiration with risks, benefits and alternatives discussed. At this time, patient states his knee has improved over the last 24 hours and he would like to continue with observation and IV antibiotics at this time. Again, I counseled the patient that should he have a septic arthritis, he could develop chondrolysis which could lead to arthritis. Patient voiced understanding of this and states this is very similar to previous episodes which have improved with time on their own. I will continue to monitor and will recheck tomorrow morning. Again, at this time patient has refused right knee aspiration.
[2018-02-18 07:58] LABS: Baso # (Auto) 0.1 th/mm3 (0.0-0.2); Baso % (Auto) 0.7 % (0.0-2.0); Eos # (Auto) 0.3 th/mm3 (0.0-0.4); Eos % (Auto) 2.7 % (0.0-4.0); Hematocrit 36.3 % (39.0-51.0); Hemoglobin 12.4 gm/dL (13.0-17.0); Lymph # (Auto) 1.1 th/mm3 (1.0-4.8); Mean Corpuscular Hemoglobin 31.6 pg (27.0-34.0); Mean Corpuscular Volume 92.9 fL (80.0-100.0); Mono # (Auto) 1.4 th/mm3 (0.0-0.9); Mono % (Auto) 12.7 % (0.0-8.0); Neut # (Auto) 8.1 th/mm3 (1.8-7.7); Neut % (Auto) 73.9 % (16.0-70.0); Platelet Count 253 th/mm3 (150-450); Red Blood Count 3.91 mil/mm3 (4.50-5.90); Red Cell Distribution Width 13.2 % (11.6-17.2)
--- NOTE | 2018-02-18 08:08 | P.PNCC ---
Subjective Subjective Remarks/Hospital Course: 02/16: 53-year-old male with past medical history diabetes mellitus, hypertension, hyperlipidemia, obesity who presented to [facility] emergency department due to febrile illness. He states he recently traveled to [place] for 5 days and on his flight home on Monday 02/12 he developed rigors and chills. He says he had passed a kidney stone prior to his trip and one during his trip. He was started on bactrim by his PCP due to concern for UTI and then followed up with Dr. Maynard who recommended CT abd/pelvis. His temp has been up to 103.2. He denies dysuria, flank pain, abdominal pain, nausea , vomiting, sore throat, cough, chest pain, sputum production, hemoptysis, headache, neckpain. He has anorexia. Denies known ill contacts but has undergone air travel. No camping or foreign travel. Initial CXR negative. CT abd /pelvis with IV contrast -gallbladder small and shrunken. No acute abnormality. WBC 15.1. He has DESTINI with creatinine of 1.53, lactic acid 2.4. Transaminases elevated. He was hypoglycemic with glucose of 53. He is admitted to hospitalist service and started on Zosyn, azithromycin, and vancomycin. Blood cultures are pending. Influenza screen is negative.. Respiratory status worsened and he is now on BiPAP 10/5 with FiO2 50%. CXR now with bilateral opacities. 02/17: Complains of right knee pain which started yesterday. Resting comfortably in bed on nasal cannula. Feels his breathing is improving. Not in any acute distress. 02/18 Patient is lying in bed in NAD. T:100.3 last night. Objective Vital Signs / I&O: Vital Signs 02/17/18 08:00 02/17/18 08:01 02/17/18 09:00 Temperature 99.4 F Pulse Rate 93 H 93 H 99 H Respiratory Rate 24 Blood Pressure 117/59 L 117/59 L 108/55 L Pulse Oximetry 93 L 94 L 95 02/17/18 09:50 02/17/18 10:00 02/17/18 10:01 Temperature Pulse Rate 98 H 97 H Respiratory Rate Blood Pressure 114/67 Pulse Oximetry 94 L 93 L 94 L 02/17/18 11:00 02/17/18 12:00 02/17/18 12:09 Temperature 99.4 F Pulse Rate 96 H 119 H 97 H Respiratory Rate Blood Pressure 121/68 131/63 Pulse Oximetry 96 92 L 02/17/18 13:00 02/17/18 13:01 02/17/18 14:00 Temperature Pulse Rate 94 H 95 H 98 H Respiratory Rate Blood Pressure 118/64 Pulse Oximetry 95 96 96 02/17/18 14:01 02/17/18 15:00 02/17/18 15:01 Temperature Pulse Rate 97 H 98 H 100 H Respiratory Rate Blood Pressure 135/63 134/63 Pulse Oximetry 96 92 L 93 L 02/17/18 16:00 02/17/18 16:01 02/17/18 17:00 Temperature 99.4 F Pulse Rate 96 H 99 H 92 H Respiratory Rate Blood Pressure 122/70 Pulse Oximetry 94 L 96 95 02/17/18 17:01 02/17/18 18:00 02/17/18 18:01 Temperature Pulse Rate 95 H 95 H 94 H Respiratory Rate Blood Pressure 128/66 135/75 Pulse Oximetry 96 95 96 02/17/18 19:00 02/17/18 19:01 02/17/18 20:00 Temperature 100.3 F H Pulse Rate 96 H 95 H 98 H Respiratory Rate Blood Pressure 139/69 139/69 Pulse Oximetry 96 95 97 02/17/18 21:26 02/17/18 22:07 02/17/18 22:41 Temperature Pulse Rate 99 H Respiratory Rate 17 Blood Pressure Pulse Oximetry 95 02/18/18 00:00 02/18/18 02:00 02/18/18 04:00 Temperature 99.4 F 98.8 F Pulse Rate 114 H 108 H 99 H Respiratory Rate 16 16 Blood Pressure 129/77 115/64 Pulse Oximetry 99 96 02/18/18 06:00 Temperature Pulse Rate 108 H Respiratory Rate Blood Pressure Pulse Oximetry Intake & Output 02/17/18 02/18/18 02/18/18 18:59 06:59 18:59 Intake Total 2195.0 / 2195.0 1447.5 / 1447.5 Output Total 1300 / 1300 850 / 850 Balance 895.0 / 895.0 597.5 / 597.5 Intake: IV 1235.0 / 1235.0 967.5 / 967.5 Azithromycin Inj 500 MG In NS 250 / 250 Inj 250 ML @ 250 mls/hr IV.SIG Q24H [facility] Rx#:[id number] Zosyn 4.5 GM Premix 4.5 gm In 200 / 200 200 / 200 100 ml @ 200 mls/hr IV.SIG Q6H [facility] Rx#:[id number] Vancomycin Inj 1,750 MG In NS 1035.0 / 1035.0 517.5 / 517.5 Inj 500 ML @ 250 mls/hr IV.SIG Q12H [facility] Rx#:[id number] Oral 960 / 960 480 / 480 Output: Urine 1300 / 1300 850 / 850 Other: Date of Last Bowel Movement 02/17/18 02/17/18 # Bowel Movements 1 1 Result Diagrams: 02/18/18 10:25 02/18/18 10:25 Objective Remarks: GENERAL: Patient is lying in bed in NAD SKIN: Warm and dry. HEAD: Normocephalic. EYES: No scleral icterus. No injection or drainage. NECK: Supple, trachea midline. No JVD or lymphadenopathy. CARDIOVASCULAR: Regular rate and rhythm without murmurs, gallops, or rubs. RESPIRATORY: Breath sounds equal bilaterally. No accessory muscle use. GASTROINTESTINAL: Abdomen soft, non-tender, nondistended. MUSCULOSKELETAL: No cyanosis, or edema. BACK: Nontender without obvious deformity. No CVA tenderness. Neuro: Awake and alert Assessment and Plan - Assessment and Plan Plan: Assessment and Plan NEURO: Awake Ultram/morphine as needed for pain UDS is negative RESP: Acute respiratory failure Continue with oxygen keep sats >92% Bronchodilators CXR today- slight improvements in b/l pulm infiltrates CTA chest today no evidence of PE, patchy ground glass infiltrates CV: Hyperlipidemia Hypertension Incomplete right bundle branch block Lactic acidemia, resolved Monitor HR and BP keep MAP>65mmHg Trend troponin. Follow-up 2D echo to evaluate for e/o myocarditis. GI: Transaminitis Anorexia CT abdomen and pelvis with IV contrast 02/15 demonstrated small and shrunken gallbladder. Liver is normal. Abdomen is nontender. Transaminase elevations ?secondary to viral process. INR normal. Send viral hepatitis panel, acetaminophen level, EBV, liver u/s. Trend LFT's. FEN/RENAL: Acute kidney injury- resolved Avoid nephrotoxins. Hold NSAIDs. Monitor renal function, I/O's, electrolytes replacement as needed No hydronephrosis was noted on CT ID: Severe sepsis Presentation appears most c/w viral respiratory illness. possible tickborne disease. Now with left knee pain which may possibly be source. Blood cultures have been sent. Influenza is negative. F/u viral respiratory panel, urine Legionella and pneumococcal antigens. U/a neg. Continue Zosyn, azithromycin, vancomycin. Will narrow based on culture data. Empiric tamiflu for now. ID is following Patient refused knee aspiration, ortho is following HEME: He is empirically started on Lovenox 130 subcu every 12 hours per hospitalist for possibility of venous thromboembolism given shortness of breath and air travel. Symptoms seem more likely explained by infectious etiology, if V/Q scan is negative will d/c Lovenox ENDO: s/p Hypoglycemia History of diabetes mellitus SSI with accuchecks PROPH: SCD for DVT prophylaxis. On therapeutic Lovenox as per above will change to Lovenox 40mg SQ daily since CT chest is negative for PE. Famotidine for stress ulcer prophylaxis. ACCESS: PIV providing adequate access at this time. Will sign off and transfer care to [facility] Full code
[2018-02-18 08:31] LABS: Alanine Aminotransferase 134 U/L (12-78); Albumin 2.4 g/dL (3.4-5.0); Anion Gap 12 meq/L (5-15); Aspartate Aminotransferase 61 U/L (15-37); Blood Urea Nitrogen 12 mg/dL (7-18); Calcium 8.2 mg/dL (8.5-10.1); Carbon Dioxide 24.8 meq/L (21.0-32.0); Chloride 101 meq/L (98-107); Glomerular Filtration Rate 88 mL/min (>89); Glucose,Random 157 mg/dL (74-106); Potassium 3.3 meq/L (3.5-5.1); Sodium 138 meq/L (136-145)
[2018-02-18 08:42] LABS: Alkaline Phosphatase 124 U/L (45-117); Total Protein 6.6 g/dL (6.4-8.2)
[2018-02-18] MEDS: Oseltamivir Phosphate 75 MG Capsule PO SCH ×2 (08:43→21:16)
[2018-02-18] MEDS: Senna/Docusate Sodium 8.6/50 MG Tablet PO SCH ×2 (08:44→22:14)
--- NOTE | 2018-02-18 09:14 | P.PNID ---
Subjective Remarks: Patient is a 53-year-old male, presented to the hospital for further evaluation of fever, chills, and shortness of breath. His problem started about 2-1/2 weeks ago when he started passing some brown colored urine. Patient has had problem with kidney stones and this looked like 1 of his episodes, and he usually passed the stone spontaneously. He has never had any urological procedure. He was advised to increase his fluid intake, but he was not improving, so he called his primary care physician who was considered with UTI and he was given a prescription for Bactrim. His symptoms improved, and patient went on his planned vacation to [place], and his urine cleared up. On the flight back to [place] which was on February 12, he started experiencing fever chills, body aches, and headaches. He was seen by his primary care physician on February 13, and was referred to the urologist who he saw on February 14. A CT of the abdomen was planned to be done, but his symptoms were not improving , and he started having some shortness of breath. He presented to the hospital for further evaluation and treatment. Patient denies any significant abdominal pain, nausea or vomiting. He has known chronic back pain and there has not been any worsening of that. His urinary symptoms have improved. He denies any congestion or any cough or any sore throat but does have the shortness of breath. Since admission his temperature has been up to 103.2. His initial chest x-ray was normal, and when he started having more problem with breathing, repeat chest x-ray was done and it is now showing bilateral infiltrates. CT of the abdomen and pelvis did not show any abnormality in the kidney but showed only a small collapsed gallbladder. His urinalysis was unremarkable. WBC was up to 15.1. Lactic acid was elevated at 2.4. Creatinine was 1.53. His transaminases were also elevated. At the time my exam patient clinically feels better as far as his body aches, and shortness of breath. He is on nasal O2. Cultures so far negative. Urine for Legionella and pneumococcal antigen were negative. Influenza testing is negative. Patient is on IV vancomycin, Zosyn, and Zithromax. Infectious disease consultation has been requested to evaluate the patient and assist with management. Notes reviewed On elow grade temps last night Feels better with breathing ON nasal O2 R knee pain still present Ortho evaluation noted CXR better NOthing (+) on C/S Antibiotics: Zosyn Vancomycin Zithromax Lines: No evidence of infection Past Medical History: Diabetes Diverticulosis Hyperlipidemia Hypertension Kidney stones Obesity Allergies/Adverse Reactions: Allergies No Known Allergies Adverse Reaction (Unknown, Uncoded 02/15/18 13:39) Objective Vital Signs 02/17/18 09:50 02/17/18 10:00 02/17/18 10:01 Temperature Pulse Rate 98 H 97 H Respiratory Rate Blood Pressure 114/67 Pulse Oximetry 94 L 93 L 94 L 02/17/18 11:00 02/17/18 12:00 02/17/18 12:09 Temperature 99.4 F Pulse Rate 96 H 119 H 97 H Respiratory Rate Blood Pressure 121/68 131/63 Pulse Oximetry 96 92 L 02/17/18 13:00 02/17/18 13:01 02/17/18 14:00 Temperature Pulse Rate 94 H 95 H 98 H Respiratory Rate Blood Pressure 118/64 Pulse Oximetry 95 96 96 02/17/18 14:01 02/17/18 15:00 02/17/18 15:01 Temperature Pulse Rate 97 H 98 H 100 H Respiratory Rate Blood Pressure 135/63 134/63 Pulse Oximetry 96 92 L 93 L 02/17/18 16:00 02/17/18 16:01 02/17/18 17:00 Temperature 99.4 F Pulse Rate 96 H 99 H 92 H Respiratory Rate Blood Pressure 122/70 Pulse Oximetry 94 L 96 95 02/17/18 17:01 02/17/18 18:00 02/17/18 18:01 Temperature Pulse Rate 95 H 95 H 94 H Respiratory Rate Blood Pressure 128/66 135/75 Pulse Oximetry 96 95 96 02/17/18 19:00 02/17/18 19:01 02/17/18 20:00 Temperature 100.3 F H Pulse Rate 96 H 95 H 98 H Respiratory Rate Blood Pressure 139/69 139/69 Pulse Oximetry 96 95 97 02/17/18 21:26 02/17/18 22:07 02/17/18 22:41 Temperature Pulse Rate 99 H Respiratory Rate 17 Blood Pressure Pulse Oximetry 95 02/18/18 00:00 02/18/18 02:00 02/18/18 04:00 Temperature 99.4 F 98.8 F Pulse Rate 114 H 108 H 99 H Respiratory Rate 16 16 Blood Pressure 129/77 115/64 Pulse Oximetry 99 96 02/18/18 06:00 Temperature Pulse Rate 108 H Respiratory Rate Blood Pressure Pulse Oximetry Intake & Output 02/17/18 02/18/18 02/18/18 18:59 06:59 18:59 Intake Total 2195.0 / 2195.0 1447.5 / 1447.5 Output Total 1300 / 1300 850 / 850 Balance 895.0 / 895.0 597.5 / 597.5 Intake: IV 1235.0 / 1235.0 967.5 / 967.5 Azithromycin Inj 500 MG In NS 250 / 250 Inj 250 ML @ 250 mls/hr IV.SIG Q24H [facility] Rx#:[id number] Zosyn 4.5 GM Premix 4.5 gm In 200 / 200 200 / 200 100 ml @ 200 mls/hr IV.SIG Q6H [facility] Rx#:[id number] Vancomycin Inj 1,750 MG In NS 1035.0 / 1035.0 517.5 / 517.5 Inj 500 ML @ 250 mls/hr IV.SIG Q12H [facility] Rx#:[id number] Oral 960 / 960 480 / 480 Output: Urine 1300 / 1300 850 / 850 Other: Date of Last Bowel Movement 02/17/18 02/17/18 # Bowel Movements 1 1 Lab - Hematology Results 02/15/18 02/15/18 02/16/18 14:00 23:45 04:23 WBC 15.1 H 11.9 H 15.2 H RBC 4.49 L 3.74 L 4.01 L Hgb 14.1 11.7 L D 12.8 L Hct 41.7 34.7 L 37.4 L MCV 93.0 92.8 93.4 MCH 31.4 31.4 31.9 MCHC 33.8 33.8 34.1 RDW 13.3 13.3 13.5 Plt Count 290 244 255 MPV 9.6 9.3 9.9 Neut % (Auto) 78.6 H 83.3 H 78.7 H Lymph % (Auto) 9.5 5.8 L 8.7 L [place] % (Auto) 10.3 H 9.9 H 11.6 H Eos % (Auto) 1.1 0.6 0.7 Baso % (Auto) 0.5 0.4 0.3 Neut # (Auto) 11.9 H 9.9 H 12.0 H Lymph # (Auto) 1.4 0.7 L 1.3 [place] # (Auto) 1.6 H 1.2 H 1.8 H Eos # (Auto) 0.2 0.1 0.1 Baso # (Auto) 0.1 0.0 0.1 CBC Comment DIFF FINAL DIFF FINAL DIFF FINAL WBC Differential Differential Comment ESR 02/17/18 02/17/18 02/18/18 04:46 14:33 07:30 WBC 11.1 H 11.0 RBC 3.72 L 3.91 L Hgb 11.9 L 12.4 L Hct 35.3 L 36.3 L MCV 94.9 92.9 MCH 32.0 31.6 MCHC 33.7 34.0 RDW 13.2 13.2 Plt Count 237 253 MPV 9.6 9.0 Neut % (Auto) 75.7 H 73.9 H Lymph % (Auto) 9.7 10.0 [place] % (Auto) 12.8 H 12.7 H Eos % (Auto) 1.4 2.7 Baso % (Auto) 0.4 0.7 Neut # (Auto) 8.4 H 8.1 H Lymph # (Auto) 1.1 1.1 [place] # (Auto) 1.4 H 1.4 H Eos # (Auto) 0.2 0.3 Baso # (Auto) 0.0 0.1 CBC Comment WBC Differential . . Differential Comment Auto diff final Auto diff final ESR Greater than 140 H Lab - Chemistry Results 02/15/18 02/15/18 02/15/18 14:00 14:00 14:00 Sodium 139 Potassium 2.7 L* Chloride 102 Carbon Dioxide 26.9 Anion Gap 10 BUN 26 H Creatinine 1.53 H Estimated GFR 48 L POC Glucose Random Glucose 53 L Lactic Acid 2.4 H Calcium 9.3 Magnesium 2.2 Total Bilirubin 0.8 AST 71 H ALT 126 H Alkaline Phosphatase 114 Ammonia Total Creatine Kinase Troponin I C-Reactive Protein B-Natriuretic Peptide Total Protein 7.8 Albumin 3.4 Lipase TSH 3rd Generation Random Cortisol 02/15/18 02/15/18 02/15/18 16:34 21:43 23:45 Sodium 138 Potassium 3.2 L Chloride 105 Carbon Dioxide 24.0 Anion Gap 9 BUN 14 D Creatinine 1.17 Estimated GFR 65 L POC Glucose Random Glucose 91 Lactic Acid 2.6 H 2.4 H Calcium 7.6 L D Magnesium Total Bilirubin 1.0 AST 98 H ALT 141 H Alkaline Phosphatase 120 H Ammonia Total Creatine Kinase Troponin I 0.29 H C-Reactive Protein B-Natriuretic Peptide Total Protein 6.4 D Albumin 2.7 L D Lipase TSH 3rd Generation Random Cortisol 02/15/18 02/15/18 02/16/18 23:45 23:45 04:23 Sodium 138 Potassium 3.3 L Chloride 104 Carbon Dioxide 24.4 Anion Gap 10 BUN 12 Creatinine 1.20 Estimated GFR 63 L POC Glucose Random Glucose 48 L* Lactic Acid 1.3 Calcium 7.9 L Magnesium Total Bilirubin 1.4 H AST 100 H ALT 153 H Alkaline Phosphatase 134 H Ammonia Total Creatine Kinase 190 Troponin I 0.28 H C-Reactive Protein B-Natriuretic Peptide 204 H Total Protein 7.0 D Albumin 3.0 L Lipase 126 TSH 3rd Generation Random Cortisol 02/16/18 02/16/18 02/16/18 04:23 04:23 04:23 Sodium Potassium Chloride Carbon Dioxide Anion Gap BUN Creatinine Estimated GFR POC Glucose Random Glucose Lactic Acid 1.1 Calcium Magnesium Total Bilirubin AST ALT Alkaline Phosphatase Ammonia Total Creatine Kinase Troponin I C-Reactive Protein B-Natriuretic Peptide Total Protein Albumin Lipase TSH 3rd Generation 0.958 Random Cortisol 43.3 02/16/18 02/16/18 02/17/18 13:51 21:22 04:46 Sodium 136 Potassium 3.1 L Chloride 99 Carbon Dioxide 25.0 Anion Gap 12 BUN 10 Creatinine 0.98 Estimated GFR 80 L POC Glucose Random Glucose 186 H Lactic Acid Calcium 7.6 L Magnesium Total Bilirubin 1.4 H AST 57 H ALT 118 H Alkaline Phosphatase 110 Ammonia 39 H Total Creatine Kinase Troponin I 0.23 H C-Reactive Protein B-Natriuretic Peptide Total Protein 6.2 L Albumin 2.3 L Lipase TSH 3rd Generation Random Cortisol 02/17/18 02/17/18 02/17/18 06:19 10:47 11:01 Sodium 136 Potassium 3.2 L Chloride 99 Carbon Dioxide 26.5 Anion Gap 11 BUN 11 Creatinine 0.95 Estimated GFR 83 L POC Glucose 202 H 223 H Random Glucose 218 H Lactic Acid Calcium 7.8 L Magnesium Total Bilirubin 1.3 H AST 53 H ALT 120 H Alkaline Phosphatase 115 Ammonia Total Creatine Kinase Troponin I C-Reactive Protein B-Natriuretic Peptide Total Protein 6.4 Albumin 2.3 L Lipase TSH 3rd Generation Random Cortisol 02/17/18 02/17/18 02/17/18 11:01 13:33 18:36 Sodium Potassium Chloride Carbon Dioxide Anion Gap BUN Creatinine Estimated GFR POC Glucose 243 H 176 H Random Glucose Lactic Acid Calcium Magnesium Total Bilirubin AST ALT Alkaline Phosphatase Ammonia Total Creatine Kinase Troponin I C-Reactive Protein 18.00 H B-Natriuretic Peptide Total Protein Albumin Lipase TSH 3rd Generation Random Cortisol 02/17/18 02/18/18 02/18/18 20:57 01:35 07:30 Sodium 138 Potassium 3.3 L Chloride 101 Carbon Dioxide 24.8 Anion Gap 12 BUN 12 Creatinine 0.90 Estimated GFR 88 L POC Glucose 213 H 191 H Random Glucose 157 H Lactic Acid Calcium 8.2 L Magnesium Total Bilirubin 0.9 AST 61 H ALT 134 H Alkaline Phosphatase 124 H Ammonia Total Creatine Kinase Troponin I C-Reactive Protein B-Natriuretic Peptide Total Protein 6.6 Albumin 2.4 L Lipase TSH 3rd Generation Random Cortisol Imaging: ITS Impressions Knee X-Ray 02/17/18 00:00 CONCLUSION: Moderate pyrophosphate arthropathy. Chest X-Ray 02/18/18 05:00 CONCLUSION: Slight improvement in bilateral patchy infiltrates. Physical Exam: GENERAL: awake and alert, not in respiratory distress. He is on nasal O2. SKIN: Cool and dry. No generalized rash, no ecchymoses and no evidence of embolic lesions. HEAD: Atraumatic. Normocephalic. No temporal wasting, or tenderness. EYES: [place] conjunctiva. No petechia or hemorrhage. Pupils equal, round and reactive to light. Extraocular movements full and intact. No scleral icterus. No injection or drainage. EARS, NOSE AND THROAT: Nose without bleeding or purulent nasal discharge. No sinus tenderness. Mucous membranes pink and moist. No oral lesions noted. No exudate. No oral thrush. NECK: Trachea midline. Supple and not tender, no meningeal signs CARDIOVASCULAR: Regular rate and rhythm. No murmurs, rubs or gallops heard RESPIRATORY: Coarse breath sounds bilaterally. Breath sounds equal bilaterally. No rales, wheezing or rhonchi ABDOMEN: Soft, non-tender, nondistended. Bowel sounds present and normoactive. No guarding. No rebound. No organomegaly. EXTREMITIES: No clubbing, cyanosis, or edema. R knee, has good ROM, not red, no heat. No calf tenderness. Well perfused and warm. NEUROLOGICAL: Grossly non-focal. PSYCHIATRIC: Normal affect, calm and cooperative. LINE: No evidence of infection Assessment and Plan - Plan IMPRESSION Sepsis on presentation, which initially he had complaints, but current UA unremarkable, and CT A/P ok - has bilateral infiltrates, ?ARDS, clinically did not have any pneumonia symptoms - ?fever from Bactrim, also with elevated transaminitis - clinically no findings to suggest biliary tract source - Repeat UA ok Known kidney stones Bilateral infiltrates - ?ARDS - no PNA symptoms - CXR better DM Obesity RECOMMENDATION Follow cultures and adjust antibiotics Continue current empiric antibiotics, he is on Zosyn, vancomycin and Zithromax If cultures come back negative, will start to de-escalate Monitor temps Monitor progress I will determine course of antibiotic once workup is completed Explained plan to the patient
[2018-02-18] MEDS: Enoxaparin Inj 150 MG/ML Syringe SQ SCH (10:09)
[2018-02-18] MEDS: Famotidine PF Inj 20 MG/2 ML Vial IV.PUSH SCH ×2 (10:10→23:19)
[2018-02-18] MEDS ORDERED: Potassium Phosphate 500 MG Soluble Tablet PO PRN ×2 (10:44→10:50)
[2018-02-18] MEDS ORDERED: Potassium Chlor 40 mEq Premix 40 MEQ/100 ML PIGGYBACK IV.SIG PRN ×2 (10:46→10:47)
[2018-02-18] MEDS ORDERED: Potassium Chloride 25 MEQ Effervescent Tablet PO PRN (10:47)
[2018-02-18] MEDS ORDERED: Potassium Chlor 20 mEq Premix 20 MEQ/100 ML PIGGYBACK IV.SIG PRN (10:47)
[2018-02-18] MEDS ORDERED: Magnesium Oxide 400 MG Tablet PO PRN (10:48)
[2018-02-18] MEDS ORDERED: Magnesium Sulfate Inj 4 GM in Sodium Chlor 0.9% Inj 92 ML IV.SIG PRN (10:48)
[2018-02-18] MEDS ORDERED: Magnesium Sulfate Inj 2 GM in Sodium Chlor 0.9% Inj 96 ML IV.SIG PRN (10:48)
[2018-02-18] MEDS ORDERED: Sodium Phosphate Inj 30 MMOL in Sodium Chlor 0.9% Inj 250 ML IV.SIG PRN (10:49)
[2018-02-18] MEDS ORDERED: Potassium Phosphate Inj 30 MMOL in Sodium Chlor 0.9% Inj 250 ML IV.SIG PRN (10:55)
[2018-02-18 11:01] LABS: Baso # (Auto) 0.1 th/mm3 (0.0-0.2); Baso % (Auto) 0.8 % (0.0-2.0); Eos # (Auto) 0.2 th/mm3 (0.0-0.4); Eos % (Auto) 2.1 % (0.0-4.0); Hematocrit 34.7 % (39.0-51.0); Lymph # (Auto) 0.9 th/mm3 (1.0-4.8); Lymph % (Auto) 8.2 % (9.0-44.0); Mean Corpuscular HGB Conc 34.6 % (32.0-36.0); Mean Corpuscular Hemoglobin 31.9 pg (27.0-34.0); Mean Corpuscular Volume 92.2 fL (80.0-100.0); Mean Platelet Volume 9.3 fL (7.0-11.0); Mono # (Auto) 1.2 th/mm3 (0.0-0.9); Mono % (Auto) 11.3 % (0.0-8.0); Neut # (Auto) 8.5 th/mm3 (1.8-7.7); Neut % (Auto) 77.6 % (16.0-70.0); Platelet Count 261 th/mm3 (150-450); Red Blood Count 3.77 mil/mm3 (4.50-5.90); Red Cell Distribution Width 12.7 % (11.6-17.2); White Blood Count 10.9 th/mm3 (4.0-11.0)
[2018-02-18 11:25] LABS: Albumin 2.3 g/dL (3.4-5.0); Anion Gap 10 meq/L (5-15); Blood Urea Nitrogen 12 mg/dL (7-18); Calcium 8.4 mg/dL (8.5-10.1); Carbon Dioxide 26.3 meq/L (21.0-32.0); Chloride 100 meq/L (98-107); Glomerular Filtration Rate 82 mL/min (>89); Glucose,Random 224 mg/dL (74-106); Potassium 3.1 meq/L (3.5-5.1); Sodium 136 meq/L (136-145)
[2018-02-18 11:26] LABS: Alanine Aminotransferase 128 U/L (12-78); Phosphorus 1.8 mg/dL (2.5-4.9)
[2018-02-18 11:28] LABS: Alkaline Phosphatase 121 U/L (45-117); Aspartate Aminotransferase 55 U/L (15-37); Total Protein 6.4 g/dL (6.4-8.2)
[2018-02-18] MEDS: Vancomycin Inj 2,000 MG in Sodium Chlor 0.9% Inj 500 ML IV.SIG SCH (12:55)
[2018-02-18] MEDS ORDERED: Vancomycin Inj 1,250 MG in Sodium Chlor 0.9% Inj 250 ML IV.SIG SCH (13:00)
--- NOTE | 2018-02-18 14:46 | ECHRPT ---
Indication: CARDIOMYOPATHY CONCLUSIONS The left ventricular systolic function is normal with an estimated ejection fraction in the range of 55-60%. Normal left ventricular size. Wall thickness is normal. No regional wall motion abnormalities are present. Trace mitral valve regurgitation. BP: / HR: Rhythm: Atrial fibrillation MEASUREMENTS (Male / Female) Normal Values Technical Quality:Fair 2D ECHO LV Diastolic Diameter PLAX 5.4 cm 4.2 - 5.9 / 3.9 - 5.3 cm LV Systolic Diameter PLAX 4.1 cm IVS Diastolic Thickness 1.1 cm 0.6 - 1.0 / 0.6 - 0.9 cm LVPW Diastolic Thickness 1.1 cm 0.6 - 1.0 / 0.6 - 0.9 cm LV Relative Wall Thickness 0.4 LVOT Diameter 2.0 cm LV Ejection Fraction MOD 4C 63.9 % LV Ejection Fraction 4C AL 65.1 % M-MODE Aortic Root Diameter MM 2.2 cm LA Systolic Diameter MM 4.0 cm LA Ao Ratio MM 1.8 AV Cusp Separation MM 2.2 cm DOPPLER AV Peak Velocity 113.0 cm/s AV Peak Gradient 5.1 mmHg LVOT Peak Velocity 104.0 cm/s LVOT Peak Gradient 4.3 mmHg AV Area Cont Eq pk 2.9 cm MV Area PHT 4.2 cm Mitral E Point Velocity 121.0 cm/s LV E' Lateral Velocity 10.4 cm/s Mitral E to LV E' Lateral Ratio 11.6 LV E' Septal Velocity 9.9 cm/s Mitral E to LV E' Septal Ratio 12.2 PV Peak Velocity 84.2 cm/s PV Peak Gradient 2.8 mmHg FINDINGS LEFT VENTRICLE The left ventricular systolic function is normal with an estimated ejection fraction in the range of 55-60%. Normal left ventricular size. Wall thickness is normal. No regional wall motion abnormalities are present. RIGHT VENTRICLE Normal right ventricular size and systolic function. LEFT ATRIUM The left atrial size is normal. RIGHT ATRIUM The right atrial size is normal. ATRIAL SEPTUM Normal atrial septal thickness without atrial level shunting by limited color doppler interrogation. AORTA The aortic root and proximal ascending aorta are normal in size on limited imaging. MITRAL VALVE Structurally normal mitral valve. Trace mitral valve regurgitation. AORTIC VALVE Trileaflet aortic valve. No aortic valve stenosis or regurgitation. TRICUSPID VALVE Structurally normal tricuspid valve. No tricuspid valve stenosis or regurgitation. PULMONARY VALVE The pulmonary valve is not well visualized. VESSELS The inferior vena cava is normal in size. PERICARDIUM No pericardial effusion. Jomar Jimenez MD, FACC (Electronically Signed) Final Date:18 February 2018 14:45
[2018-02-18] MEDS: Azithromycin Inj 500 MG in Sodium Chlor 0.9% Inj 250 ML IV.SIG SCH (23:19)
[2018-02-19] MEDS: Vancomycin Inj 2,000 MG in Sodium Chlor 0.9% Inj 500 ML IV.SIG SCH (02:00)
[2018-02-19] MEDS: Insulin NovoLOG Aspart Correctional Sugar Inj SQ SCH ×6 (02:05→22:08)
[2018-02-19] MEDS: Piperacil/Tazo 4.5 GM Premix 4.5 GM/100 ML BAG IV.SIG SCH ×4 (04:08→21:29)
[2018-02-19 05:36] LABS: Baso # (Auto) 0.1 th/mm3 (0.0-0.2); Baso % (Auto) 0.7 % (0.0-2.0); Eos # (Auto) 0.4 th/mm3 (0.0-0.4); Hematocrit 34.7 % (39.0-51.0); Lymph # (Auto) 1.2 th/mm3 (1.0-4.8); Lymph % (Auto) 12.2 % (9.0-44.0); Mean Corpuscular HGB Conc 34.5 % (32.0-36.0); Mean Corpuscular Volume 92.8 fL (80.0-100.0); Mono # (Auto) 1.2 th/mm3 (0.0-0.9); Mono % (Auto) 12.4 % (0.0-8.0); Neut # (Auto) 6.7 th/mm3 (1.8-7.7); Neut % (Auto) 70.7 % (16.0-70.0); Platelet Count 294 th/mm3 (150-450); Red Blood Count 3.74 mil/mm3 (4.50-5.90); Red Cell Distribution Width 13.1 % (11.6-17.2); White Blood Count 9.5 th/mm3 (4.0-11.0)
[2018-02-19 05:56] LABS: Alanine Aminotransferase 145 U/L (12-78); Albumin 2.3 g/dL (3.4-5.0); Anion Gap 10 meq/L (5-15); Aspartate Aminotransferase 66 U/L (15-37); Blood Urea Nitrogen 12 mg/dL (7-18); Carbon Dioxide 27.8 meq/L (21.0-32.0); Chloride 103 meq/L (98-107); Glomerular Filtration Rate 89 mL/min (>89); Glucose,Random 159 mg/dL (74-106); Potassium 3.1 meq/L (3.5-5.1); Sodium 141 meq/L (136-145)
[2018-02-19 05:59] LABS: Alkaline Phosphatase 130 U/L (45-117); Total Protein 6.3 g/dL (6.4-8.2)
[2018-02-19] MEDS: Potassium Chlor 20 mEq Premix 20 MEQ/100 ML PIGGYBACK IV.SIG PRN ×4 (07:16→11:22)
[2018-02-19] MEDS: Oseltamivir Phosphate 75 MG Capsule PO SCH ×2 (08:31→22:08)
[2018-02-19] MEDS: Enoxaparin Inj 40 MG/0.4 ML Syringe SQ SCH (08:31)
[2018-02-19] MEDS: Senna/Docusate Sodium 8.6/50 MG Tablet PO SCH ×2 (08:34→22:08)
--- NOTE | 2018-02-19 09:13 | P.PNOP ---
Subjective Interval history: Patient resting in bed comfortably. States his pain has significantly improved especially in his right knee. He reports essentially no pain. Muscle aches have significantly improved. Physical Exam Vital signs: Vital Signs 02/18/18 10:00 02/18/18 10:01 02/18/18 10:53 Temperature Pulse Rate 108 H 108 H 107 H Respiratory Rate 32 H 37 H 40 H Blood Pressure 160/78 H 154/87 H Pulse Oximetry 97 97 96 02/18/18 11:00 02/18/18 11:18 02/18/18 11:24 Temperature Pulse Rate 104 H 107 H 105 H Respiratory Rate 20 20 20 Blood Pressure 164/71 H 162/96 H 146/70 H Pulse Oximetry 96 97 95 02/18/18 12:00 02/18/18 13:00 02/18/18 13:01 Temperature 98.8 F Pulse Rate 105 H 102 H 106 H Respiratory Rate 26 H 28 H 33 H Blood Pressure 154/67 H 159/64 H Pulse Oximetry 98 96 96 02/18/18 14:00 02/18/18 14:01 02/18/18 15:00 Temperature Pulse Rate 103 H 104 H 114 H Respiratory Rate 32 H 29 H 24 Blood Pressure 152/63 H Pulse Oximetry 97 97 98 02/18/18 15:01 02/18/18 16:00 02/18/18 16:01 Temperature 97.9 F Pulse Rate 109 H 106 H 106 H Respiratory Rate 22 29 H 27 H Blood Pressure 159/85 H 132/70 132/70 Pulse Oximetry 97 97 96 02/18/18 17:00 02/18/18 18:00 02/18/18 20:00 Temperature 98.6 F Pulse Rate 105 H 114 H 104 H Respiratory Rate 25 H 20 25 H Blood Pressure 138/78 151/92 H 159/90 H Pulse Oximetry 97 88 L 95 02/18/18 22:00 02/19/18 00:00 02/19/18 01:47 Temperature 98.1 F Pulse Rate 111 H 112 H Respiratory Rate 25 H Blood Pressure 134/74 Pulse Oximetry 92 L 92 L 02/19/18 02:00 02/19/18 04:00 02/19/18 06:00 Temperature 97.9 F Pulse Rate 109 H 102 H 110 H Respiratory Rate 28 H Blood Pressure 169/92 H Pulse Oximetry 28 L Intake & Output 02/18/18 02/19/18 02/19/18 18:59 06:59 18:59 Intake Total 1470 / 1470 1450 / 1450 Output Total 2250 / 2250 1500 / 1500 Balance -780 / -780 -50 / -50 Intake: IV 720 / 720 970 / 970 Azithromycin Inj 500 MG In NS 250 / 250 Inj 250 ML @ 250 mls/hr IV.SIG Q24H [facility] Rx#:[id number] Zosyn 4.5 GM Premix 4.5 gm In 200 / 200 200 / 200 100 ml @ 200 mls/hr IV.SIG Q6H [facility] Rx#:[id number] Vancomycin Inj 2,000 MG In NS 520 / 520 520 / 520 Inj 500 ML @ 260 mls/hr IV.SIG Q12H [facility] Rx#:[id number] Oral 750 / 750 480 / 480 Output: Urine 2250 / 2250 1500 / 1500 Other: Date of Last Bowel Movement 02/18/18 02/18/18 02/18/18 # Bowel Movements 2 1 Narrative: Awake, alert, no acute distress Right lower extremity: Minimal if any edema around the right knee. No erythema. Trace effusion. No tenderness to palpation over knee. Full active range of motion from 0 to greater than 130 without discomfort. Positive EHL and FHL. Sensation intact. Brisk cap refill. Negative Hom[place] bilaterally Assessment and Plan - Assessment and Plan 53-year-old gentleman who presents with bacteremia and concern for right knee pain and swelling Clinically, he has had essentially complete resolution in his right knee pain. At this time, he does not appear to have any concerning signs or symptoms for septic arthritis. He has minimal if any swelling, no erythema, and full active range of motion without pain. Patient states he essentially has no pain. At this time, I would not recommend aspiration of his right knee. Patient does not require urgent surgical intervention. Patient can follow-up as an outpatient. Should there be new or concerning signs or symptoms, please reconsult.
[2018-02-19] MEDS ORDERED: Lisinopril 20 MG Tablet PO ONE (10:00)
[2018-02-19] MEDS ORDERED: Labetalol HCl Inj 100 MG/20 ML Vial IV.PUSH ONE (10:00)
--- NOTE | 2018-02-19 11:32 | P.PNID ---
Subjective Remarks: Patient is a 53-year-old male, presented to the hospital for further evaluation of fever, chills, and shortness of breath. His problem started about 2-1/2 weeks ago when he started passing some brown colored urine. Patient has had problem with kidney stones and this looked like 1 of his episodes, and he usually passed the stone spontaneously. He has never had any urological procedure. He was advised to increase his fluid intake, but he was not improving, so he called his primary care physician who was considered with UTI and he was given a prescription for Bactrim. His symptoms improved, and patient went on his planned vacation to [place], and his urine cleared up. On the flight back to [place] which was on February 12, he started experiencing fever chills, body aches, and headaches. He was seen by his primary care physician on February 13, and was referred to the urologist who he saw on February 14. A CT of the abdomen was planned to be done, but his symptoms were not improving , and he started having some shortness of breath. He presented to the hospital for further evaluation and treatment. Patient denies any significant abdominal pain, nausea or vomiting. He has known chronic back pain and there has not been any worsening of that. His urinary symptoms have improved. He denies any congestion or any cough or any sore throat but does have the shortness of breath. Since admission his temperature has been up to 103.2. His initial chest x-ray was normal, and when he started having more problem with breathing, repeat chest x-ray was done and it is now showing bilateral infiltrates. CT of the abdomen and pelvis did not show any abnormality in the kidney but showed only a small collapsed gallbladder. His urinalysis was unremarkable. WBC was up to 15.1. Lactic acid was elevated at 2.4. Creatinine was 1.53. His transaminases were also elevated. At the time my exam patient clinically feels better as far as his body aches, and shortness of breath. He is on nasal O2. Cultures so far negative. Urine for Legionella and pneumococcal antigen were negative. Influenza testing is negative. Patient is on IV vancomycin, Zosyn, and Zithromax. Infectious disease consultation has been requested to evaluate the patient and assist with management. Notes reviewed Temps normal Feels better with breathing Sats 93% on RA R knee pain better CXR better NOthing (+) on C/S Antibiotics: Zosyn Vancomycin Zithromax Lines: No evidence of infection Past Medical History: Diabetes Diverticulosis Hyperlipidemia Hypertension Kidney stones Obesity Allergies/Adverse Reactions: Allergies No Known Allergies Adverse Reaction (Unknown, Uncoded 02/15/18 13:39) Objective Vital Signs 02/18/18 12:00 02/18/18 13:00 02/18/18 13:01 Temperature 98.8 F Pulse Rate 105 H 102 H 106 H Respiratory Rate 26 H 28 H 33 H Blood Pressure 154/67 H 159/64 H Pulse Oximetry 98 96 96 02/18/18 14:00 02/18/18 14:01 02/18/18 15:00 Temperature Pulse Rate 103 H 104 H 114 H Respiratory Rate 32 H 29 H 24 Blood Pressure 152/63 H Pulse Oximetry 97 97 98 02/18/18 15:01 02/18/18 16:00 02/18/18 16:01 Temperature 97.9 F Pulse Rate 109 H 106 H 106 H Respiratory Rate 22 29 H 27 H Blood Pressure 159/85 H 132/70 132/70 Pulse Oximetry 97 97 96 02/18/18 17:00 02/18/18 18:00 02/18/18 19:00 Temperature Pulse Rate 105 H 114 H 103 H Respiratory Rate 25 H 20 25 H Blood Pressure 138/78 151/92 H Pulse Oximetry 97 88 L 97 02/18/18 19:24 02/18/18 20:00 02/18/18 21:00 Temperature 98.6 F Pulse Rate 112 H 104 H 103 H Respiratory Rate 28 H 25 H 35 H Blood Pressure 135/93 H 159/90 H 160/74 H Pulse Oximetry 96 95 95 02/18/18 22:00 02/18/18 23:00 02/18/18 23:05 Temperature Pulse Rate 111 H 127 H 113 H Respiratory Rate 33 H 37 H 31 H Blood Pressure 146/75 H 152/91 H Pulse Oximetry 94 L 93 L 93 L 02/19/18 00:00 02/19/18 00:31 02/19/18 01:00 Temperature 98.1 F Pulse Rate 112 H 111 H 106 H Respiratory Rate 25 H 30 H 21 Blood Pressure 134/74 134/74 Pulse Oximetry 92 L 93 L 93 L 02/19/18 01:01 02/19/18 01:47 02/19/18 02:00 Temperature Pulse Rate 97 H 109 H Respiratory Rate 17 26 H Blood Pressure 165/73 H 170/126 H Pulse Oximetry 93 L 92 L 93 L 02/19/18 02:02 02/19/18 03:00 02/19/18 04:00 Temperature 97.9 F Pulse Rate 108 H 101 H 102 H Respiratory Rate 24 22 28 H Blood Pressure 156/92 H 165/84 H 169/92 H Pulse Oximetry 95 94 L 28 L 02/19/18 05:00 02/19/18 06:00 02/19/18 07:00 Temperature Pulse Rate 95 H 110 H 105 H Respiratory Rate 23 30 H 24 Blood Pressure 187/92 H 172/98 H 175/105 H Pulse Oximetry 93 L 94 L 94 L 02/19/18 07:09 02/19/18 07:10 02/19/18 08:00 Temperature 98.8 F Pulse Rate 106 H 102 H 112 H Respiratory Rate 13 14 28 H Blood Pressure 156/105 H 156/88 H 148/94 H Pulse Oximetry 96 95 89 L 02/19/18 09:00 02/19/18 10:00 Temperature Pulse Rate 112 H 108 H Respiratory Rate 21 Blood Pressure 188/97 H Pulse Oximetry 97 Intake & Output 02/18/18 02/19/18 02/19/18 18:59 06:59 18:59 Intake Total 1470 / 1470 1450 / 1450 300 / 300 Output Total 2250 / 2250 1500 / 1500 Balance -780 / -780 -50 / -50 300 / 300 Intake: IV 720 / 720 970 / 970 300 / 300 Azithromycin Inj 500 MG In NS 250 / 250 Inj 250 ML @ 250 mls/hr IV.SIG Q24H [facility] Rx#:[id number] Zosyn 4.5 GM Premix 4.5 gm In 200 / 200 200 / 200 100 ml @ 200 mls/hr IV.SIG Q6H [facility] Rx#:[id number] KCl 20 mEq Premix Inj 20 meq In 300 / 300 100 ml @ 50 mls/hr IV.SIG Q2H PRN Rx#:[id number] Vancomycin Inj 2,000 MG In NS 520 / 520 520 / 520 Inj 500 ML @ 260 mls/hr IV.SIG Q12H [facility] Rx#:[id number] Oral 750 / 750 480 / 480 Output: Urine 2250 / 2250 1500 / 1500 Other: Date of Last Bowel Movement 02/18/18 02/18/18 02/18/18 # Bowel Movements 2 1 Lab - Hematology Results 02/17/18 02/18/18 02/18/18 14:33 07:30 10:25 WBC 11.0 10.9 RBC 3.91 L 3.77 L Hgb 12.4 L 12.0 L Hct 36.3 L 34.7 L MCV 92.9 92.2 MCH 31.6 31.9 MCHC 34.0 34.6 RDW 13.2 12.7 Plt Count 253 261 MPV 9.0 9.3 Neut % (Auto) 73.9 H 77.6 H Lymph % (Auto) 10.0 8.2 L [place] % (Auto) 12.7 H 11.3 H Eos % (Auto) 2.7 2.1 Baso % (Auto) 0.7 0.8 Neut # (Auto) 8.1 H 8.5 H Lymph # (Auto) 1.1 0.9 L [place] # (Auto) 1.4 H 1.2 H Eos # (Auto) 0.3 0.2 Baso # (Auto) 0.1 0.1 WBC Differential . . Differential Comment Auto diff final Auto diff final ESR Greater than 140 H 02/19/18 04:35 WBC 9.5 RBC 3.74 L Hgb 12.0 L Hct 34.7 L MCV 92.8 MCH 32.0 MCHC 34.5 RDW 13.1 Plt Count 294 MPV 9.0 Neut % (Auto) 70.7 H Lymph % (Auto) 12.2 [place] % (Auto) 12.4 H Eos % (Auto) 4.0 Baso % (Auto) 0.7 Neut # (Auto) 6.7 Lymph # (Auto) 1.2 [place] # (Auto) 1.2 H Eos # (Auto) 0.4 Baso # (Auto) 0.1 WBC Differential . Differential Comment Auto diff final ESR Lab - Chemistry Results 02/17/18 02/17/18 02/17/18 11:01 11:01 13:33 Sodium 136 Potassium 3.2 L Chloride 99 Carbon Dioxide 26.5 Anion Gap 11 BUN 11 Creatinine 0.95 Estimated GFR 83 L POC Glucose 243 H Random Glucose 218 H Calcium 7.8 L Phosphorus Magnesium Total Bilirubin 1.3 H AST 53 H ALT 120 H Alkaline Phosphatase 115 C-Reactive Protein 18.00 H Total Protein 6.4 Albumin 2.3 L 02/17/18 02/17/18 02/18/18 18:36 20:57 01:35 Sodium Potassium Chloride Carbon Dioxide Anion Gap BUN Creatinine Estimated GFR POC Glucose 176 H 213 H 191 H Random Glucose Calcium Phosphorus Magnesium Total Bilirubin AST ALT Alkaline Phosphatase C-Reactive Protein Total Protein Albumin 02/18/18 02/18/18 02/18/18 07:30 10:01 10:25 Sodium 138 136 Potassium 3.3 L 3.1 L Chloride 101 100 Carbon Dioxide 24.8 26.3 Anion Gap 12 10 BUN 12 12 Creatinine 0.90 0.96 Estimated GFR 88 L 82 L POC Glucose 253 H Random Glucose 157 H 224 H Calcium 8.2 L 8.4 L Phosphorus 1.8 L Magnesium 2.0 Total Bilirubin 0.9 0.8 AST 61 H 55 H ALT 134 H 128 H Alkaline Phosphatase 124 H 121 H C-Reactive Protein Total Protein 6.6 6.4 Albumin 2.4 L 2.3 L 02/18/18 02/18/18 02/18/18 13:56 17:47 18:41 Sodium Potassium 3.4 L Chloride Carbon Dioxide Anion Gap BUN Creatinine Estimated GFR POC Glucose 173 H 167 H Random Glucose Calcium Phosphorus Magnesium Total Bilirubin AST ALT Alkaline Phosphatase C-Reactive Protein Total Protein Albumin 02/18/18 02/19/18 02/19/18 21:12 02:04 04:35 Sodium 141 Potassium 3.1 L Chloride 103 Carbon Dioxide 27.8 Anion Gap 10 BUN 12 Creatinine 0.89 Estimated GFR 89 POC Glucose 188 H 190 H Random Glucose 159 H Calcium 8.0 L Phosphorus Magnesium Total Bilirubin 0.6 AST 66 H ALT 145 H Alkaline Phosphatase 130 H C-Reactive Protein Total Protein 6.3 L Albumin 2.3 L 02/19/18 02/19/18 06:32 09:51 Sodium Potassium Chloride Carbon Dioxide Anion Gap BUN Creatinine Estimated GFR POC Glucose 151 H 198 H Random Glucose Calcium Phosphorus Magnesium Total Bilirubin AST ALT Alkaline Phosphatase C-Reactive Protein Total Protein Albumin Imaging: ITS Impressions Knee X-Ray 02/17/18 00:00 CONCLUSION: Moderate pyrophosphate arthropathy. Chest CTA 02/18/18 00:00 CONCLUSION: No evidence of pulmonary embolism Chest X-Ray 02/18/18 05:00 CONCLUSION: Slight improvement in bilateral patchy infiltrates. Physical Exam: GENERAL: awake and alert, not in respiratory distress. SKIN: Cool and dry. No generalized rash, no ecchymoses and no evidence of embolic lesions. HEAD: Atraumatic. Normocephalic. No temporal wasting, or tenderness. EYES: [place] conjunctiva. No petechia or hemorrhage. Pupils equal, round and reactive to light. Extraocular movements full and intact. No scleral icterus. No injection or drainage. EARS, NOSE AND THROAT: Nose without bleeding or purulent nasal discharge. No sinus tenderness. Mucous membranes pink and moist. No oral lesions noted. No exudate. No oral thrush. NECK: Trachea midline. Supple and not tender, no meningeal signs CARDIOVASCULAR: Regular rate and rhythm. No murmurs, rubs or gallops heard RESPIRATORY: Clear breath sounds bilaterally. Breath sounds equal bilaterally. No rales, wheezing or rhonchi ABDOMEN: Soft, non-tender, nondistended. Bowel sounds present and normoactive. No guarding. No rebound. No organomegaly. EXTREMITIES: No clubbing, cyanosis, or edema. R knee, has good ROM, not red, no heat. No calf tenderness. Well perfused and warm. NEUROLOGICAL: Grossly non-focal. PSYCHIATRIC: Normal affect, calm and cooperative. LINE: No evidence of infection Assessment and Plan - Plan IMPRESSION Sepsis on presentation, which initially he had complaints, but current UA unremarkable, and CT A/P ok - has bilateral infiltrates, ?ARDS, clinically did not have any pneumonia symptoms - ?fever from Bactrim, also with elevated transaminitis - clinically no findings to suggest biliary tract source - Repeat UA ok Known kidney stones Bilateral infiltrates - ?ARDS - no PNA symptoms - CXR better DM Obesity RECOMMENDATION Stop Vanco Change Zithromax to po Continue Zosyn for now and decide tomorrow to change Monitor temps Monitor progress Explained plan to the patient D/W RN
[2018-02-19] MEDS ORDERED: Chlorthalidone 50 MG Tablet PO ONE (12:00)
[2018-02-19] MEDS: Famotidine PF Inj 20 MG/2 ML Vial IV.PUSH SCH ×2 (12:04→22:09)
[2018-02-19 16:29] VITALS: RESP 18
--- NOTE | 2018-02-19 16:59 | P.PNIM ---
Subjective Interval history: Resting in no acute distress No fever over last 24 hours Arthrocentesis of the knee was not recommended by Orth Physical Exam Vital signs: Vital Signs 02/18/18 17:00 02/18/18 18:00 02/18/18 19:00 Temperature Pulse Rate 105 H 114 H 103 H Respiratory Rate 25 H 20 25 H Blood Pressure 138/78 151/92 H Pulse Oximetry 97 88 L 97 02/18/18 19:24 02/18/18 20:00 02/18/18 21:00 Temperature 98.6 F Pulse Rate 112 H 104 H 103 H Respiratory Rate 28 H 25 H 35 H Blood Pressure 135/93 H 159/90 H 160/74 H Pulse Oximetry 96 95 95 02/18/18 22:00 02/18/18 23:00 02/18/18 23:05 Temperature Pulse Rate 111 H 127 H 113 H Respiratory Rate 33 H 37 H 31 H Blood Pressure 146/75 H 152/91 H Pulse Oximetry 94 L 93 L 93 L 02/19/18 00:00 02/19/18 00:31 02/19/18 01:00 Temperature 98.1 F Pulse Rate 112 H 111 H 106 H Respiratory Rate 25 H 30 H 21 Blood Pressure 134/74 134/74 Pulse Oximetry 92 L 93 L 93 L 02/19/18 01:01 02/19/18 01:47 02/19/18 02:00 Temperature Pulse Rate 97 H 109 H Respiratory Rate 17 26 H Blood Pressure 165/73 H 170/126 H Pulse Oximetry 93 L 92 L 93 L 02/19/18 02:02 02/19/18 03:00 02/19/18 04:00 Temperature 97.9 F Pulse Rate 108 H 101 H 102 H Respiratory Rate 24 22 28 H Blood Pressure 156/92 H 165/84 H 169/92 H Pulse Oximetry 95 94 L 28 L 02/19/18 05:00 02/19/18 06:00 02/19/18 07:00 Temperature Pulse Rate 95 H 110 H 105 H Respiratory Rate 23 30 H 24 Blood Pressure 187/92 H 172/98 H 175/105 H Pulse Oximetry 93 L 94 L 94 L 02/19/18 07:09 02/19/18 07:10 02/19/18 08:00 Temperature 98.8 F Pulse Rate 106 H 102 H 112 H Respiratory Rate 13 14 28 H Blood Pressure 156/105 H 156/88 H 148/94 H Pulse Oximetry 96 95 89 L 02/19/18 09:00 02/19/18 10:00 02/19/18 10:05 Temperature Pulse Rate 112 H 108 H 103 H Respiratory Rate 21 20 25 H Blood Pressure 188/97 H 171/100 H 155/85 H Pulse Oximetry 97 97 93 L 02/19/18 10:20 02/19/18 10:40 02/19/18 11:00 Temperature Pulse Rate 96 H 100 H 94 H Respiratory Rate 21 16 26 H Blood Pressure 160/91 H 147/94 H Pulse Oximetry 95 95 95 02/19/18 11:01 02/19/18 11:08 02/19/18 12:00 Temperature 98 F Pulse Rate 96 H 95 H 96 H Respiratory Rate 30 H 25 H 13 Blood Pressure 185/87 H 148/81 H 151/89 H Pulse Oximetry 96 97 95 02/19/18 16:00 Temperature 98 F Pulse Rate 103 H Respiratory Rate 18 Blood Pressure 140/86 Pulse Oximetry 95 Intake & Output 02/18/18 02/19/18 02/19/18 18:59 06:59 18:59 Intake Total 1470 / 1470 1450 / 1450 1000 / 1000 Output Total 2250 / 2250 1500 / 1500 1250 / 1250 Balance -780 / -780 -50 / -50 -250 / -250 Intake: IV 720 / 720 970 / 970 500 / 500 Azithromycin Inj 500 MG In NS 250 / 250 Inj 250 ML @ 250 mls/hr IV.SIG Q24H [facility] Rx#:[id number] Zosyn 4.5 GM Premix 4.5 gm In 200 / 200 200 / 200 100 / 100 100 ml @ 200 mls/hr IV.SIG Q6H [facility] Rx#:[id number] KCl 20 mEq Premix Inj 20 meq In 400 / 400 100 ml @ 50 mls/hr IV.SIG Q2H PRN Rx#:[id number] Vancomycin Inj 2,000 MG In NS 520 / 520 520 / 520 Inj 500 ML @ 260 mls/hr IV.SIG Q12H [facility]YN Rx#:[id number] Oral 750 / 750 480 / 480 500 / 500 Output: Urine 2250 / 2250 1500 / 1500 1250 / 1250 Other: Date of Last Bowel Movement 02/18/18 02/18/18 02/18/18 # Bowel Movements 2 1 Narrative: GENERAL: This is a well-nourished, well-developed patient, in no apparent distress. CARDIOVASCULAR: RRR, no gallops, or rubs. RESPIRATORY: Fair air entry bilaterally. No W, R, or R GASTROINTESTINAL: Abdomen soft, non-tender, nondistended. Positive bowel sounds MUSCULOSKELETAL: Extremities without clubbing, cyanosis, or edema. Pedal pulses appreciated, right knee with good range of motion but tender NEUROLOGICAL: Awake and alert. Moves all extremity. Normal speech.no focal neurological deficit Results - Labs CBC & Chem 7: 02/19/18 04:35 02/20/18 13:10 Laboratory Results - last 24 hr 02/18/18 02/18/18 02/18/18 17:47 18:41 21:12 WBC RBC Hgb Hct MCV MCH MCHC RDW Plt Count MPV Neut % (Auto) Lymph % (Auto) Price % (Auto) Eos % (Auto) Baso % (Auto) Neut # (Auto) Lymph # (Auto) Price # (Auto) Eos # (Auto) Baso # (Auto) WBC Differential Differential Comment Sodium Potassium 3.4 L Chloride Carbon Dioxide Anion Gap BUN Creatinine Estimated GFR POC Glucose 167 H 188 H Random Glucose Calcium Total Bilirubin AST ALT Alkaline Phosphatase Total Protein Albumin 02/19/18 02/19/18 02/19/18 02:04 04:35 04:35 WBC 9.5 RBC 3.74 L Hgb 12.0 L Hct 34.7 L MCV 92.8 MCH 32.0 MCHC 34.5 RDW 13.1 Plt Count 294 MPV 9.0 Neut % (Auto) 70.7 H Lymph % (Auto) 12.2 Price % (Auto) 12.4 H Eos % (Auto) 4.0 Baso % (Auto) 0.7 Neut # (Auto) 6.7 Lymph # (Auto) 1.2 Price # (Auto) 1.2 H Eos # (Auto) 0.4 Baso # (Auto) 0.1 WBC Differential . Differential Comment Auto diff final Sodium 141 Potassium 3.1 L Chloride 103 Carbon Dioxide 27.8 Anion Gap 10 BUN 12 Creatinine 0.89 Estimated GFR 89 POC Glucose 190 H Random Glucose 159 H Calcium 8.0 L Total Bilirubin 0.6 AST 66 H ALT 145 H Alkaline Phosphatase 130 H Total Protein 6.3 L Albumin 2.3 L 02/19/18 02/19/18 02/19/18 06:32 09:51 15:30 WBC RBC Hgb Hct MCV MCH MCHC RDW Plt Count MPV Neut % (Auto) Lymph % (Auto) Price % (Auto) Eos % (Auto) Baso % (Auto) Neut # (Auto) Lymph # (Auto) Price # (Auto) Eos # (Auto) Baso # (Auto) WBC Differential Differential Comment Sodium Potassium Chloride Carbon Dioxide Anion Gap BUN Creatinine Estimated GFR POC Glucose 151 H 198 H 178 H Random Glucose Calcium Total Bilirubin AST ALT Alkaline Phosphatase Total Protein Albumin Assessment and Plan - Plan 02/16: 53-year-old male with past medical history diabetes mellitus, hypertension, hyperlipidemia, obesity who presented to [facility] emergency department due to febrile illness. He states he recently traveled to [place] for 5 days and on his flight home on Monday 02/12 he developed rigors and chills. He says he had passed a kidney stone prior to his trip and one during his trip. He was started on bactrim by his PCP due to concern for UTI and then followed up with Dr. Maynard who recommended CT abd/pelvis. His temp has been up to 103.2. He denies dysuria, flank pain, abdominal pain, nausea , vomiting, sore throat, cough, chest pain, sputum production, hemoptysis, headache, neckpain. He has anorexia. Denies known ill contacts but has undergone air travel. No camping or foreign travel. Initial CXR negative. CT abd /pelvis with IV contrast -gallbladder small and shrunken. No acute abnormality. WBC 15.1. He has DESTINI with creatinine of 1.53, lactic acid 2.4. Transaminases elevated. He was hypoglycemic with glucose of 53. He is admitted to hospitalist service and started on Zosyn, azithromycin, and vancomycin. Blood cultures are pending. Influenza screen is negative.. Respiratory status worsened and he is now on BiPAP 10/5 with FiO2 50%. CXR now with bilateral opacities. 02/17: Complains of right knee pain which started yesterday. Resting comfortably in bed on nasal cannula. Feels his breathing is improving. Not in any acute distress. 02/18 Patient is lying in bed in NAD. T:100.3 last night. 02/19: Right knee arthrocentesis per also, appreciate ID and Orth follow-up, monitor cbc Assessment and Plan Acute respiratory failure Hyperlipidemia Hypertension Incomplete right bundle branch block Lactic acidemia, resolved Transaminitis Anorexia Acute kidney injury- resolved Severe sepsis s/p Hypoglycemia History of diabetes mellitus Continue with oxygen keep sats >92% Bronchodilators CXR today- slight improvements in b/l pulm infiltrates CTA chest today no evidence of PE, patchy ground glass infiltrates Monitor HR and BP keep MAP>65mmHg Trend troponin. Follow-up 2D echo to evaluate for e/o myocarditis. CT abdomen and pelvis with IV contrast 02/15 demonstrated small and shrunken gallbladder. Liver is normal. Abdomen is nontender. Transaminase elevations ?secondary to viral process. INR normal. Send viral hepatitis panel, acetaminophen level, EBV, liver u/s. Trend LFT's. Avoid nephrotoxins. Hold NSAIDs. Monitor renal function, I/O's, electrolytes replacement as needed No hydronephrosis was noted on CT Presentation appears most c/w viral respiratory illness. possible tickborne disease. Now with left knee pain which may possibly be source. Blood cultures have been sent. Influenza is negative. F/u viral respiratory panel, urine Legionella and pneumococcal antigens. U/a neg. Continue Zosyn, azithromycin, vancomycin. Will narrow based on culture data. Empiric tamiflu for now. ID is following Patient refused knee aspiration, ortho is following He is empirically started on Lovenox 130 subcu every 12 hours per hospitalist for possibility of venous thromboembolism given shortness of breath and air travel. Symptoms seem more likely explained by infectious etiology, if V/Q scan is negative will d/c Lovenox SSI with accuchecks PROPH: SCD for DVT prophylaxis. On therapeutic Lovenox as per above will change to Lovenox 40mg SQ daily since CT chest is negative for PE. Famotidine for stress ulcer prophylaxis. Code Status: 02/16: 53-year-old male with past medical history diabetes mellitus, hypertension, hyperlipidemia, obesity who presented to [facility] emergency department due to febrile illness. He states he recently traveled to [place] for 5 days and on his flight home on Monday 02/12 he developed rigors and chills. He says he had passed a kidney stone prior to his trip and one during his trip. He was started on bactrim by his PCP due to concern for UTI and then followed up with Dr. Maynard who recommended CT abd/pelvis. His temp has been up to 103.2. He denies dysuria, flank pain, abdominal pain, nausea , vomiting, sore throat, cough, chest pain, sputum production, hemoptysis, headache, neckpain. He has anorexia. Denies known ill contacts but has undergone air travel. No camping or foreign travel. Initial CXR negative. CT abd /pelvis with IV contrast -gallbladder small and shrunken. No acute abnormality. WBC 15.1. He has DESTINI with creatinine of 1.53, lactic acid 2.4. Transaminases elevated. He was hypoglycemic with glucose of 53. He is admitted to hospitalist service and started on Zosyn, azithromycin, and vancomycin. Blood cultures are pending. Influenza screen is negative.. Respiratory status worsened and he is now on BiPAP 10/5 with FiO2 50%. CXR now with bilateral opacities. 02/17: Complains of right knee pain which started yesterday. Resting comfortably in bed on nasal cannula. Feels his breathing is improving. Not in any acute distress. 02/18 Patient is lying in bed in NAD. T:100.3 last night. Objective Vital Signs / I&O: Vital Signs 02/17/18 08:00 02/17/18 08:01 02/17/18 09:00 Temperature 99.4 F Pulse Rate 93 H 93 H 99 H Respiratory Rate 24 Blood Pressure 117/59 L 117/59 L 108/55 L Pulse Oximetry 93 L 94 L 95 02/17/18 09:50 02/17/18 10:00 02/17/18 10:01 Temperature Pulse Rate 98 H 97 H Respiratory Rate Blood Pressure 114/67 Pulse Oximetry 94 L 93 L 94 L 02/17/18 11:00 02/17/18 12:00 02/17/18 12:09 Temperature 99.4 F Pulse Rate 96 H 119 H 97 H Respiratory Rate Blood Pressure 121/68 131/63 Pulse Oximetry 96 92 L 02/17/18 13:00 02/17/18 13:01 02/17/18 14:00 Temperature Pulse Rate 94 H 95 H 98 H Respiratory Rate Blood Pressure 118/64 Pulse Oximetry 95 96 96 02/17/18 14:01 02/17/18 15:00 02/17/18 15:01 Temperature Pulse Rate 97 H 98 H 100 H Respiratory Rate Blood Pressure 135/63 134/63 Pulse Oximetry 96 92 L 93 L 02/17/18 16:00 02/17/18 16:01 02/17/18 17:00 Temperature 99.4 F Pulse Rate 96 H 99 H 92 H Respiratory Rate Blood Pressure 122/70 Pulse Oximetry 94 L 96 95 02/17/18 17:01 02/17/18 18:00 02/17/18 18:01 Temperature Pulse Rate 95 H 95 H 94 H Respiratory Rate Blood Pressure 128/66 135/75 Pulse Oximetry 96 95 96 02/17/18 19:00 02/17/18 19:01 02/17/18 20:00 Temperature 100.3 F H Pulse Rate 96 H 95 H 98 H Respiratory Rate Blood Pressure 139/69 139/69 Pulse Oximetry 96 95 97 02/17/18 21:26 02/17/18 22:07 02/17/18 22:41 Temperature Pulse Rate 99 H Respiratory Rate 17 Blood Pressure Pulse Oximetry 95 02/18/18 00:00 02/18/18 02:00 02/18/18 04:00 Temperature 99.4 F 98.8 F Pulse Rate 114 H 108 H 99 H Respiratory Rate 16 16 Blood Pressure 129/77 115/64 Pulse Oximetry 99 96 02/18/18 06:00 Temperature Pulse Rate 108 H Respiratory Rate Blood Pressure Pulse Oximetry Intake & Output 02/17/18 02/18/18 02/18/18 18:59 06:59 18:59 Intake Total 2195.0 / 2195.0 1447.5 / 1447.5 Output Total 1300 / 1300 850 / 850 Balance 895.0 / 895.0 597.5 / 597.5 Intake: IV 1235.0 / 1235.0 967.5 / 967.5 Azithromycin Inj 500 MG In NS 250 / 250 Inj 250 ML @ 250 mls/hr IV.SIG Q24H [facility] Rx#:[id number] Zosyn 4.5 GM Premix 4.5 gm In 200 / 200 200 / 200 100 ml @ 200 mls/hr IV.SIG Q6H [facility]YN Rx#:[id number] Vancomycin Inj 1,750 MG In NS 1035.0 / 1035.0 517.5 / 517.5 Inj 500 ML @ 250 mls/hr IV.SIG Q12H KAYLN Rx#:[id number] Oral 960 / 960 480 / 480 Output: Urine 1300 / 1300 850 / 850 Other: Date of Last Bowel Movement 02/17/18 02/17/18 # Bowel Movements 1 1 Result Diagrams: 02/18/18 10:25 02/18/18 10:25 Objective Remarks: GENERAL: Patient is lying in bed in NAD SKIN: Warm and dry. HEAD: Normocephalic. EYES: No scleral icterus. No injection or drainage. NECK: Supple, trachea midline. No JVD or lymphadenopathy. CARDIOVASCULAR: Regular rate and rhythm without murmurs, gallops, or rubs. RESPIRATORY: Breath sounds equal bilaterally. No accessory muscle use. GASTROINTESTINAL: Abdomen soft, non-tender, nondistended. MUSCULOSKELETAL: No cyanosis, or edema. BACK: Nontender without obvious deformity. No CVA tenderness. Neuro: Awake and alert Assessment and Plan - Assessment and Plan Plan: Assessment and Plan NEURO: Awake Ultram/morphine as needed for pain UDS is negative RESP: Acute respiratory failure Continue with oxygen keep sats >92% Bronchodilators CXR today- slight improvements in b/l pulm infiltrates CTA chest today no evidence of PE, patchy ground glass infiltrates CV: Hyperlipidemia Hypertension Incomplete right bundle branch block Lactic acidemia, resolved Monitor HR and BP keep MAP>65mmHg Trend troponin. Follow-up 2D echo to evaluate for e/o myocarditis. GI: Transaminitis Anorexia CT abdomen and pelvis with IV contrast 02/15 demonstrated small and shrunken gallbladder. Liver is normal. Abdomen is nontender. Transaminase elevations ?secondary to viral process. INR normal. Send viral hepatitis panel, acetaminophen level, EBV, liver u/s. Trend LFT's. FEN/RENAL: Acute kidney injury- resolved Avoid nephrotoxins. Hold NSAIDs. Monitor renal function, I/O's, electrolytes replacement as needed No hydronephrosis was noted on CT ID: Severe sepsis Presentation appears most c/w viral respiratory illness. possible tickborne disease. Now with left knee pain which may possibly be source. Blood cultures have been sent. Influenza is negative. F/u viral respiratory panel, urine Legionella and pneumococcal antigens. U/a neg. Continue Zosyn, azithromycin, vancomycin. Will narrow based on culture data. Empiric tamiflu for now. ID is following Patient refused knee aspiration, ortho is following HEME: He is empirically started on Lovenox 130 subcu every 12 hours per hospitalist for possibility of venous thromboembolism given shortness of breath and air travel. Symptoms seem more likely explained by infectious etiology, if V/Q scan is negative will d/c Lovenox ENDO: s/p Hypoglycemia History of diabetes mellitus SSI with accuchecks PROPH: SCD for DVT prophylaxis. On therapeutic Lovenox as per above will change to Lovenox 40mg SQ daily since CT chest is negative for PE. Famotidine for stress ulcer prophylaxis.
[2018-02-20] MEDS ORDERED: Pharmacy Ordered Lab Info OTHER ONE (00:45)
[2018-02-20] MEDS: Insulin NovoLOG Aspart Correctional Sugar Inj SQ SCH ×4 (02:35→14:28)
[2018-02-20] MEDS: Piperacil/Tazo 4.5 GM Premix 4.5 GM/100 ML BAG IV.SIG SCH ×2 (03:23→10:49)
[2018-02-20] MEDS ORDERED: Azithromycin 250 MG Tablet PO SCH (09:00)
[2018-02-20] MEDS ORDERED: Lisinopril 20 MG Tablet PO SCH (09:00)
[2018-02-20] MEDS ORDERED: Chlorthalidone 50 MG Tablet PO SCH (09:00)
[2018-02-20] MEDS: Enoxaparin Inj 40 MG/0.4 ML Syringe SQ SCH (09:26)
[2018-02-20] MEDS: Oseltamivir Phosphate 75 MG Capsule PO SCH (09:26)
[2018-02-20] MEDS: Senna/Docusate Sodium 8.6/50 MG Tablet PO SCH (09:26)
[2018-02-20] MEDS: Famotidine PF Inj 20 MG/2 ML Vial IV.PUSH SCH (10:51)
[2018-02-20 13:47] LABS: Calcium 8.8 mg/dL (8.5-10.1); Carbon Dioxide 27.3 meq/L (21.0-32.0); Potassium 3.2 meq/L (3.5-5.1)
--- NOTE | 2018-02-20 14:28 | P.DS ---
Date of admission: 02/15/18 19:02 Primary care physician: Tong Torrez MD Brief History from admission: Mr. Beltran is a 53-year-old male with a history of hypertension, type 2 diabetes mellitus, nephrolithiasis, diverticular bleed requiring colectomy in 2012, and chronic back pain who presented to the emergency room on 02/15/2018 complaining of fever, chills, and shortness of breath. He was tachycardic with leukocytosis of 15.1 with neutrophilia and lactate of 2.4 on admission. He had been diagnosed with a UTI and placed on Bactrim 2 weeks ago and states he also had a kidney stone pass about a week ago. His renal function is impaired though we have no baseline, BUN 26, creatinine 1.53, and estimated GFR 48. He also had transaminitis of undetermined significance with AST 71 and ALT 126. Abdomen/pelvis CT showed no inflammatory changes and no source of the patient's fever. Chest x-ray was also negative. Urine showed no sign of infection. The patient is admitted to [facility] service for management of sepsis with unknown source of infection. The patient is seen in the CDU. He is dyspneic with conversation. He tells me he had awoken on Sunday in the middle the night with inability to catch his breath. He then developed fever and chills. Symptoms progressed to include shortness of breath with exertion. He states he had no chest pain. He recently traveled to the [place] and returned 5 days ago. Patient reports a UTI about 2 weeks ago treated with Bactrim and reports passing a kidney stone about a week ago. Patient's symptoms are severe. The patient is to be transferred from the CDU to ICU for further management under close observation. DS: Diagnosis - Discharge Diagnosis (1) Sepsis Status: Acute (2) Pneumonia Status: Acute DS: Medications - Discharge Medications Prescriptions: aspirin 81 mg CHEW DAILY #30 tab levofloxacin [Levaquin] 8 mg/kg PO Q24H #7 tab DS: Summary Hospital Course: 53 years old male admitted for evaluation of fever chills short of breath, sepsis on presentation, bilateral infiltrate showed on a CT of the chest ID consulted started on IV antibiotic they recommended unlikely to be related to biliary infection, UA was negative he has a history of kidney stones. Patient went into the ICU under academic advisement director care, he is status post vancomycin then ID switch him to Synthroid and Levaquin at discharge for 7 days, he had a swelling in his knee which was assessed by orthopedic they recommended against arthrocentesis now Date of discharge I discussed with ID to clear patient for discharge he is doing well discuss with him and his plan to go home on Levaquin follow-up as an outpatient with PCP [id number] encounter performed with the patient on discharge day, as well as physical exam, summary of hospitalization course and postdischarge plan has been D/W the patient. D/W nurse D/W case management director. Discharge medications reviewed and printed and signed, post discharge follow up visit with PCP and other specialist as well as Brief hospital course and discharge summary has been placed. - Time Spent with Patient Total time spent providing and/or coordinating discharge services: Exam Vital signs: Vital Signs 02/19/18 16:00 02/19/18 17:38 02/19/18 20:00 Temperature 98 F 99.1 F Pulse Rate 103 H 76 Respiratory Rate 18 Blood Pressure 140/86 180/88 H Pulse Oximetry 95 95 96 02/20/18 00:00 02/20/18 04:00 02/20/18 08:00 Temperature 98.5 F 98.2 F 98.5 F Pulse Rate 76 81 81 Respiratory Rate 18 18 18 Blood Pressure 172/92 H 167/91 H 173/90 H Pulse Oximetry 94 L 94 L 94 L 02/20/18 12:00 Temperature 98.1 F Pulse Rate 87 Respiratory Rate 18 Blood Pressure 184/95 H Pulse Oximetry 95 Intake & Output 02/19/18 02/20/18 02/20/18 18:59 06:59 18:59 Intake Total 1100 / 1100 200 / 200 Output Total 1250 / 1250 Balance -150 / -150 200 / 200 Intake: IV 600 / 600 200 / 200 Zosyn 4.5 GM Premix 4.5 gm In 200 / 200 200 / 200 100 ml @ 200 mls/hr IV.SIG Q6H [facility]YN Rx#:[id number] KCl 20 mEq Premix Inj 20 meq In 400 / 400 100 ml @ 50 mls/hr IV.SIG Q2H PRN Rx#:[id number] Oral 500 / 500 Output: Urine 1250 / 1250 Other: # Voids 1 Date of Last Bowel Movement 07/03/18 # Bowel Movements 1 Narrative: GENERAL: This is a well-nourished, well-developed patient, in no apparent distress. CARDIOVASCULAR: RRR, no gallops, or rubs. RESPIRATORY: Fair air entry bilaterally. No W, R, or R GASTROINTESTINAL: Abdomen soft, non-tender, nondistended. Positive bowel sounds MUSCULOSKELETAL: Extremities without clubbing, cyanosis, or edema. Pedal pulses appreciated NEUROLOGICAL: Awake and alert. Moves all extremity. Normal speech.no focal neurological deficit Results Procedures completed during hospitalization: See below Labs on day of discharge: Labs from last 24 hours 02/20/18 02/20/18 02/20/18 13:10 13:10 10:17 Sodium 138 Potassium 3.2 L Chloride 100 Carbon Dioxide 27.3 Anion Gap 11 BUN 12 Creatinine 0.96 Estimated GFR 82 L POC Glucose 225 H Random Glucose 176 H Calcium 8.8 D Magnesium 2.3 02/20/18 02/20/18 02/19/18 06:23 02:33 21:45 Sodium Potassium Chloride Carbon Dioxide Anion Gap BUN Creatinine Estimated GFR POC Glucose 155 H 144 H 166 H Random Glucose Calcium Magnesium 02/19/18 02/19/18 18:56 15:30 Sodium Potassium Chloride Carbon Dioxide Anion Gap BUN Creatinine Estimated GFR POC Glucose 185 H 178 H Random Glucose Calcium Magnesium - Impressions ITS Impressions Knee X-Ray 02/17/18 00:00 CONCLUSION: Moderate pyrophosphate arthropathy. Chest CTA 02/18/18 00:00 CONCLUSION: No evidence of pulmonary embolism Chest X-Ray 02/18/18 05:00 CONCLUSION: Slight improvement in bilateral patchy infiltrates. Discharge Plan - Discharge Disposition Patient Disposition: Discharge Home - Discharge Condition Condition: Good - Discharge Order Discharge Orders: Discharge Order (Routine); Ordered 02/20/18 Ordered By: Jose Manuel Bronson - Physicians Team Primary Care Provider: Tong Torrez Attending Provider: Jose Manuel Bronson Other Providers: Marlin Villatoro MD ; Rebekah Orlando MD ; Lauren Roberson MD ; Yelena Cain MD - Rxs /Orders / Referrals /Forms Prescriptions: New aspirin 81 mg Tablet,Chewable 81 mg CHEW DAILY Qty: 30 RF: 0 levofloxacin [Levaquin] 750 mg Tablet 8 mg/kg PO Q24H Qty: 7 RF: 0 Continue atorvastatin 40 mg PO HS chlorthalidone 25 mg PO DAILY glimepiride 2 mg PO DAILY lisinopril 40 mg PO HS metformin 1,000 mg PO BID methocarbamol 750 mg PO TID Tradjenta 5 mg PO DAILY tramadol 50 mg PO Q8HR PRN (Reason: Pain) Discontinued ibuprofen 800 mg PO Q6HR PRN (Reason: Pain) valsartan 160 mg PO BID Referrals: Tong Torrez MD [Primary Care Provider] - See Instructions
[2018-02-20 17:21] VITALS: BP 177/94; PULSE 76; TEMP 99.1; O2SAT 94
== END 2018-02-20 21:36 | disposition home or self-care (01) ==
LOC: HIMC 19:02 → N05 02-19 12:35
PROVIDERS: ADMIT Hospitalist; ATTEND Hospitalist